=== PATIENT | female | born 1945 | race Two or more races ===

== ENCOUNTER → 2020-12-04 10:05 | Outpatient (BNVA) | payer MEDICARE, MEDICAID, SELFPAY | PROVIDERS: PCP Internal Medicine; Visit Provider Nurse Practitioner Gerontology | DX: E03.9 Hypothyroidism, unspecified (principal); E04.2 Nontoxic multinodular goiter | CPT/HCPCS: 99212 ==

== ENCOUNTER 2022-06-20 09:09 | Outpatient (REF) | payer MEDICARE, MEDICAID, SELFPAY ==
[2022-06-20 14:38] LABS: CT PCR NOT DETECTED (Not Detect.); NG PCR NOT DETECTED (Not Detect.)
== END 2022-06-20 09:10 | disposition home or self-care (01) ==
LOC: HO.LAB 09:09
PROVIDERS: Visit Provider Internal Medicine
DX: Z11.3 Encounter for screening for infections with a predominantly sexual mode of transmission (principal); N76.0 Acute vaginitis
CPT/HCPCS: 87491; 87591

== ENCOUNTER 2023-01-14 10:52 | Outpatient (REF) | payer MEDICARE, MEDICAID, SELFPAY ==
[2023-01-14 15:24] LABS: Influenza A PCR NEGATIVE (Negative); Influenza B PCR NEGATIVE (Negative); Resp Syncy Virus RNA Qual PCR NEGATIVE (Negative); SARS COV2 PCR INHOUSE NEGATIVE (Negative)
== END 2023-01-14 10:53 | disposition home or self-care (01) ==
LOC: HO.LAB 10:52
PROVIDERS: Visit Provider Internal Medicine
DX: R09.89 Other specified symptoms and signs involving the circulatory and respiratory systems (principal); Z20.822 Contact with and (suspected) exposure to COVID-19
CPT/HCPCS: 0241U

== ENCOUNTER 2023-07-21 10:24 | Outpatient (AMB) | payer MEDICARE, MEDICAID, SELFPAY ==
[2023-07-21 10:29] VITALS: BP 118/68; PULSE 83; O2SAT 96; BMI 30.8
--- NOTE | 2023-07-21 10:29 | MHC.PC.OV ---
Vital Signs 07/21/23 10:29 Height 5 ft 6 in Weight 191 lb BMI 30.8 BP 118/68 Blood Pressure Location Lt brachial Position Sitting Pulse 83 Pulse Source Pulse Oximeter Pulse Oximetry (%) 96 Oxygen Delivery Method Room Air Intake Visit Reasons: Annual PE Intake Note: Pt is here today for PE. Allergies empagliflozin [From Jardiance] Adverse Reaction (Intermediate, Verified 07/21/23 10:40) candidiasis glipizide Adverse Reaction (Intermediate, Verified 07/21/23 10:40) leg edema Tobacco use date assessed: 07/21/23 Fall risk assessment: No Falls in past year Last assessed Fall Risk: 07/21/23 Dental Screening Dental Screen Date: 07/21/23 Did you have a dental visit in the last 12 months?: Yes Did you have a dental problem in the last 6 months where you did not have access to dental care?: No Was dental information given to patient?: Patient has dentist HPI Annual PE HPI Details PATIENT PRESENTS FOR PHYSICAL PFSH Medical History Nolasco's palsy DILL (dyspnea on exertion) Multinodular goiter Sore throat Hyperlipidemia Osteoporosis Skin cancer, basal cell Cervical radiculopathy Hypothyroidism FREDY (obstructive sleep apnea) Chronic lower back pain HTN (hypertension) DM type 2 (diabetes mellitus, type 2) Surgical History Hx of cataract surgery Family History Father No problems noted. Mother Cataract Social History Household Members: Spouse Housing: House Alcohol intake: never Patient Tobacco Use Status: Never used Tobacco e-Cigarette/Vaping Use: Never Used service: No Current occupational status: retired Cognitive needs: No Hearing needs: No Vision needs: No Questionnaire Thrive Questionnaire Date Thrive assessed: 12/30/22 AUDIT C Alcohol Use Questionnaire (AUDIT-C) 1. How often do you have a drink containing alcohol?: Never 3. How often do you have six or more drinks on one occasion?: Never Total Score: 0 JUAN LUIS-7 AMB Questionnaire JUAN LUIS-7 Date JUAN LUIS - 7 assessed: 12/30/22 Source: Developed by Drs. Henry Whiteside, Dora Roblero, Reggie Peterson and colleagues, with an educational keny from [employer]. Review of Systems Const All systems reviewed & are unremarkable except as noted in HPI and below Reports no additional complaints Eyes Reports no additional complaints ENT Reports no additional complaints Card Reports no additional complaints Resp Reports no additional complaints GI Reports no additional complaints Reports no additional complaints Physical exam (Primary Care) Vital Signs: Last Vital Signs Pulse 83 07/21/23 10:29 BP 118/68 07/21/23 10:29 Pulse Ox 96 07/21/23 10:29 Oxygen Delivery Method Room Air 07/21/23 10:29 BMI result Body Mass Index 30.8 Tobacco/Smoking Status: Tobacco use Status Tobacco use date assessed 07/21/23 07/21/23 10:42 Patient Tobacco Use Status Never used Tobacco 07/21/23 10:42 e-Cigarette/Vaping Use Never Used 07/21/23 10:29 Thrive Assessment: Date of Thrive Assessment Date Thrive assessed 12/30/22 07/21/23 10:29 Const General: no acute distress HENMT Head: Yes normal to inspection Face and sinus: Yes normal facial exam Throat: Yes posterior oropharynx normal Eyes General: appearance normal, both eyes and all related structures Neck Neck: Yes supple Resp Effort & Inspection: normal respiratory effort Auscultation: clear to auscultation bilaterally Cardio Rhythm: regular rhythm Heart sounds: S1 normal heart sound present and S2 normal heart sound present GI Inspection: Yes normal to inspection Palpation (GI): Soft to palpation Percussion: Yes normal to percussion Auscultation: normal bowel sounds Extrem General: Yes no clubbing, cyanosis or edema Results AMB Hemoglobin A1c AMB Hemoglobin A1c 9.2 % Last Edit by ASHLY Perez on 07/21/23 11:40 Results Reviewed Results Reviewed: Laboratory Last Values Hgb A1c (Clinic) 9.2 % (4.0-6.0) H 07/21/23 11:40 Assessment and Plan Assessment & Plan (1) Hyperlipidemia: Code(s): E78.5 - Hyperlipidemia, unspecified Plan: Continue Crestor (2) HTN (hypertension): Code(s): I10 - Essential (primary) hypertension Plan: cont meds (3) DM type 2 (diabetes mellitus, type 2): Comment: Cannot tolerate 2000 mg of metformin, stomach upset Code(s): E11.9 - Type 2 diabetes mellitus without complications Plan: A1c is 9.1, ADA diet increase physical activity discussed with the patient. Adding Trulicity or insulin discussed with the patient but she declined. She would like to follow-up in 2 months with a fasting blood work including A1c (4) Annual physical exam: Code(s): Z00.00 - Encounter for general adult medical examination without abnormal findings Plan: Well-balanced diet regular exercise discussed with the patient. (5) Hypothyroidism: Code(s): E03.9 - Hypothyroidism, unspecified Plan: Continue levothyroxine Orders: Orders Comprehensive [place]. Panel Fast 2 Months E11.9 - Type 2 diabetes mellitus without complications, E78.5 - Hyperlipidemia, unspecified, I10 - Essential (primary) hypertension Complete Blood Count Auto Diff 2 Months E11.9 - Type 2 diabetes mellitus without complications, E78.5 - Hyperlipidemia, unspecified, I10 - Essential (primary) hypertension Hemoglobin A1c 2 Months E11.9 - Type 2 diabetes mellitus without complications, E78.5 - Hyperlipidemia, unspecified, I10 - Essential (primary) hypertension UA w Microscopic 2 Months E11.9 - Type 2 diabetes mellitus without complications AMB Hemoglobin A1c Today Z13.9 - Encounter for screening, unspecified Lipid Panel 2 Months E11.9 - Type 2 diabetes mellitus without complications, E78.5 - Hyperlipidemia, unspecified, I10 - Essential (primary) hypertension Medications: Refilled Levoxyl (levothyroxine) 88 mcg PO DAILY 90 tabs 3RF NS E03.9 - Hypothyroidism, unspecified metformin ER 1,500 mg (3 x 500 mg) PO DAILY 270 tabs 3RF olmesartan 40 mg PO DAILY 90 tabs 3RF Crestor (rosuvastatin) 10 mg PO DAILY 90 tabs 3RF NS amlodipine 2.5 mg PO DAILY 90 tabs 3RF Coding Level of Care Code Est Pt Prev Care >65y(30964) Diagnoses Hyperlipidemia E78.5 HTN (hypertension) I10 DM type 2 (diabetes mellitus, type 2) E11.9 Annual physical exam Z00.00 Hypothyroidism E03.9
== END 2023-07-21 13:20 | disposition home or self-care (01) ==
PROVIDERS: Visit Provider Internal Medicine
DX: Z00.00 Encounter for general adult medical examination without abnormal findings (principal); E78.5 Hyperlipidemia, unspecified; I10 Essential (primary) hypertension; E11.69 Type 2 diabetes mellitus with other specified complication; E03.9 Hypothyroidism, unspecified
CPT/HCPCS: 83036; 99397

== ENCOUNTER 2023-10-14 11:51 | Outpatient (AMB) | payer MEDICARE, MEDICAID, SELFPAY ==
--- NOTE | 2023-10-14 12:07 | A.OFFPC_ITS ---
Vital Signs 10/14/23 12:08 Height 5 ft 6 in Weight 186 lb 8 oz BMI 30.1 BP 120/82 Blood Pressure Location Lt brachial Position Sitting Pulse 91 Pulse Source Pulse Oximeter Pulse Oximetry (%) 97 Oxygen Delivery Method Room Air Intake Visit Reasons: 2 months follow up Intake Note: Pt is here to follow up for her lab results Allergies empagliflozin [From Jardiance] Adverse Reaction (Intermediate, Verified 10/14/23 12:20) candidiasis glipizide Adverse Reaction (Intermediate, Verified 10/14/23 12:20) leg edema Medication List - Last Reconciled 10/14/23 by Ericka Pham MD albuterol sulfate 90 mcg/actuation 2 puffs inhalation Q6H PRN amlodipine 2.5 mg PO DAILY benzonatate 100 mg PO TID blood sugar diagnostic (FreeStyle Lite Strips) check glucose once a day cholecalciferol (vitamin D3) 50 mcg PO DAILY cholecalciferol (vitamin D3) 50 mcg PO DAILY Crestor (rosuvastatin) 10 mg PO DAILY NS dapagliflozin propanediol (Farxiga) 5 mg PO DAILY famotidine (Pepcid) 20 mg PO DAILY fluconazole 150 mg PO Q3D 2 doses fluticasone propionate 50 mcg/actuation 1 spray intranasal DAILY ketoconazole 2% 1 appl topical DAILY lancets (FreeStyle Lancets) check glucose once a day Levoxyl (levothyroxine) 88 mcg PO DAILY NS meclizine 25 mg PO BID PRN metformin ER 1,500 mg (3 x 500 mg) PO DAILY olmesartan 40 mg PO DAILY Tobacco use date assessed: 10/14/23 Fall risk assessment: No Falls in past year Last assessed Fall Risk: 10/14/23 Dental Screening Dental Screen Date: 10/14/23 Did you have a dental visit in the last 12 months?: Yes Did you have a dental problem in the last 6 months where you did not have access to dental care?: No Was dental information given to patient?: Patient has dentist HPI 2 months follow up HPI Details Patient presents for the follow-up of hypertension hyperlipidemia type 2 diabetes and hypothyroidism. Patient has been going to physical therapy for chronic lower back pain and is feeling slightly better. [facility] Medical History Nolasco's palsy DILL (dyspnea on exertion) Multinodular goiter Sore throat Hyperlipidemia Osteoporosis Skin cancer, basal cell Cervical radiculopathy Hypothyroidism FREDY (obstructive sleep apnea) Chronic lower back pain HTN (hypertension) DM type 2 (diabetes mellitus, type 2) Surgical History Hx of cataract surgery Family History Father No problems noted. Mother Cataract Social History Household Members: Spouse Housing: House Alcohol intake: never Patient Tobacco Use Status: Never used Tobacco e-Cigarette/Vaping Use: Never Used service: No Current occupational status: retired Cognitive needs: No Hearing needs: No Vision needs: No Questionnaire Thrive Questionnaire Date Thrive assessed: 12/30/22 AUDIT C Alcohol Use Questionnaire (AUDIT-C) 1. How often do you have a drink containing alcohol?: Never 3. How often do you have six or more drinks on one occasion?: Never Total Score: 0 JUAN LUIS-7 AMB Questionnaire JUAN LUIS-7 Date JUAN LUIS - 7 assessed: 12/30/22 Source: Developed by Drs. Henry Whiteside, Dora Roblero, Reggie Peterson and colleagues, with an educational keny from [employer]. Review of Systems Const All systems reviewed & are unremarkable except as noted in HPI and below Reports no additional complaints Eyes Reports no additional complaints ENT Reports no additional complaints Card Reports no additional complaints Resp Reports no additional complaints GI Reports no additional complaints Reports no additional complaints Physical exam (Primary Care) Vital Signs: Last Vital Signs Pulse 91 10/14/23 12:08 BP 160/98 H 10/14/23 12:08 Pulse Ox 97 10/14/23 12:08 Oxygen Delivery Method Room Air 10/14/23 12:08 BMI result Body Mass Index 30.1 Tobacco/Smoking Status: Tobacco use Status Tobacco use date assessed 10/14/23 10/14/23 12:21 Patient Tobacco Use Status Never used Tobacco 10/14/23 12:12 e-Cigarette/Vaping Use Never Used 10/14/23 12:12 Thrive Assessment: Date of Thrive Assessment Date Thrive assessed 12/30/22 10/14/23 12:12 Const General: no acute distress HENMT Head: Yes normal to inspection Ears: hearing grossly normal bilaterally Face and sinus: Yes normal facial exam Eyes General: appearance normal, both eyes and all related structures Neck Neck: Yes supple Resp Effort & Inspection: normal respiratory effort Auscultation: clear to auscultation bilaterally Cardio Rhythm: regular rhythm Heart sounds: S1 normal heart sound present and S2 normal heart sound present GI Inspection: Yes normal to inspection Palpation (GI): Soft to palpation Percussion: Yes normal to percussion Auscultation: normal bowel sounds Assessment and Plan Assessment & Plan (1) Sciatica: Code(s): M54.30 - Sciatica, unspecified side Plan: Continue physical therapy (2) DM type 2 (diabetes mellitus, type 2): Comment: Cannot tolerate 2000 mg of metformin, stomach upset Code(s): E11.9 - Type 2 diabetes mellitus without complications Plan: A1c is 9.3, ADA diet increase physical activity weight loss discussed with the patient. She is willing to try a low-dose of Farxiga in addition to metformin. Follow-up in 3 months with a fasting labs before (3) HTN (hypertension): Code(s): I10 - Essential (primary) hypertension Plan: Continue olmesartan and amlodipine (4) Hyperlipidemia: Code(s): E78.5 - Hyperlipidemia, unspecified Plan: Continue statin Orders: Orders Hemoglobin A1c 3 Months E11.9 - Type 2 diabetes mellitus without complications, E78.5 - Hyperlipidemia, unspecified, I10 - Essential (primary) hypertension XR lumbar spine 2-3V Today M54.30 - Sciatica, unspecified side Comprehensive [place]. Panel Fast 3 Months E11.9 - Type 2 diabetes mellitus without complications, E78.5 - Hyperlipidemia, unspecified, I10 - Essential (primary) hypertension Medications: New dapagliflozin propanediol (Farxiga) 5 mg PO DAILY 90 tabs 0RF Coding Level of Care Code Est Pt Level 4 (48207) Diagnoses Sciatica M54.30 DM type 2 (diabetes mellitus, type 2) E11.9 HTN (hypertension) I10 Hyperlipidemia E78.5
[2023-10-14 12:08] VITALS: BP 120/82; PULSE 91; O2SAT 97; BMI 30.1
== END 2023-10-14 12:37 | disposition home or self-care (01) ==
PROVIDERS: PCP Internal Medicine; Visit Provider Internal Medicine
DX: E11.69 Type 2 diabetes mellitus with other specified complication (principal); M54.30 Sciatica, unspecified side; I10 Essential (primary) hypertension; E78.5 Hyperlipidemia, unspecified
CPT/HCPCS: 99214

== ENCOUNTER 2023-12-10 11:13 | Outpatient (AMB) | payer MEDICARE, MEDICAID, SELFPAY ==
[2023-12-10 11:15] VITALS: BP 136/72; PULSE 92; O2SAT 97; BMI 30.5
--- NOTE | 2023-12-10 11:15 | A.OFFPC_ITS ---
Vital Signs 12/10/23 11:15 Height 5 ft 6 in Weight 189 lb BMI 30.5 BP 136/72 Blood Pressure Location Lt brachial Position Sitting Pulse 92 Pulse Source Pulse Oximeter Pulse Oximetry (%) 97 Oxygen Delivery Method Room Air Intake Visit Reasons: Follow up on back pain not better Intake Note: Pt is here today for a follow up visit on lower back pain that goes down her leg. Pt states that she had PT and in the begining it helped but now the pain is worst. Pt states that yesterday she had pain in her lower L leg sharp pain. Allergies empagliflozin [From Jardiance] Adverse Reaction (Intermediate, Verified 12/10/23 11:16) candidiasis glipizide Adverse Reaction (Intermediate, Verified 12/10/23 11:16) leg edema Medication List - Last Reconciled 12/10/23 by Ericka Pham MD albuterol sulfate 90 mcg/actuation 2 puffs inhalation Q6H PRN amlodipine 2.5 mg PO DAILY blood sugar diagnostic (FreeStyle Lite Strips) check glucose once a day cholecalciferol (vitamin D3) 50 mcg PO DAILY Crestor (rosuvastatin) 10 mg PO DAILY NS dapagliflozin propanediol (Farxiga) 5 mg PO DAILY famotidine (Pepcid) 20 mg PO DAILY fluconazole 150 mg PO Q3D 2 doses fluticasone propionate 50 mcg/actuation 1 spray intranasal DAILY ketoconazole 2% 1 appl topical DAILY lancets (FreeStyle Lancets) check glucose once a day Levoxyl (levothyroxine) 88 mcg PO DAILY NS meclizine 25 mg PO BID PRN meloxicam 15 mg PO DAILY metformin ER 1,500 mg (3 x 500 mg) PO DAILY olmesartan 40 mg PO DAILY Tobacco use date assessed: 12/10/23 Fall risk assessment: No Falls in past year Last assessed Fall Risk: 12/10/23 Dental Screening Dental Screen Date: 12/10/23 HPI Follow up on back pain not better HPI Details Patient presents for the follow-up of chronic lower back pain without significant improvement since starting physical therapy. Patient reports pain radiating to both lower extremities worse when standing or walking for longer distance. She denies change in bowel/bladder function, weakness or numbness in extremities. Patient has been taking Crestor for hyperlipidemia and believes it is causing her muscle achiness. Hypertension and type 2 diabetes are stable on medications PFSH Medical History Nolasco's palsy DILL (dyspnea on exertion) Multinodular goiter Sore throat Hyperlipidemia Osteoporosis Skin cancer, basal cell Cervical radiculopathy Hypothyroidism FREDY (obstructive sleep apnea) Chronic lower back pain HTN (hypertension) DM type 2 (diabetes mellitus, type 2) Surgical History Hx of cataract surgery Family History Father No problems noted. Mother Cataract Social History Household Members: Spouse Housing: House Alcohol intake: never Patient Tobacco Use Status: Never used Tobacco e-Cigarette/Vaping Use: Never Used service: No Current occupational status: retired Cognitive needs: No Hearing needs: No Vision needs: No Questionnaire PHQ-9 Over the last 2 weeks, how often have you been bothered by any of the following problems? 1. Little interest or pleasure in doing things: not at all 2. Feeling down, depressed, or hopeless: not at all 3. Trouble falling or staying asleep, or sleeping too much: not at all 4. Feeling tired or having little energy: not at all 5. Poor appetite or overeating: not at all 6. Feeling bad about yourself - or that you are a failure or have let yourself or your family down: not at all 7. Trouble concentrating on things, such as reading the newspaper or watching television: not at all 8. Moving or speaking so slowly that other people could have noticed. Or the opposite - being so fidgety or restless that you have been moving around a lot m ore than usual: not at all 9. Thoughts that you would be better off or of hurting yourself in some way: not at all Total score: 0 Depression Screening Interpretation: Negative Depression Screening Done: Yes Source: Developed by Drs. Henry Whiteside, Dora Roblero, Reggie Peterson and colleagues, with an educational keny from [employer]. Thrive Questionnaire Date Thrive assessed: 12/10/23 I am a: Patient What is your living situation today?: I have a steady place to live Within the past 12 months, did the food you bought not last and you didn't have the money to get more?: Never true Within the past 12 months, did you worry whether your food would run out before you got money to buy more?: Never true Do you have trouble paying for medicines?: No Do you have trouble getting transportation to medical appointments?: No Do you have trouble paying your heating and electricity bill?: No Do you have trouble taking care of your child, family member or friend?: No Do you have trouble with day-to-day activities such as bathing, preparing meals, shopping, managing finances, etc.?: No Are you currently unemployed and looking for a job?: No Are you interested in more education?: No Please select the resources that you would like help with: None Currently or been in a relationship where the following occur: no concerns reported THRIVE Score: 0 JUAN LUIS-7 AMB Questionnaire JUAN LUIS-7 Date JUAN LUIS - 7 assessed: 12/10/23 Feeling nervous, anxious, or on edge: 0 = Not at all Not being able to stop or control worryin = Not at all Worrying too much about different things: 0 = Not at all Trouble relaxin = Not at all Being so restless that it is hard to sit still: 0 = Not at all Becoming easily annoyed or irritable: 0 = Not at all Feeling afraid as if something awful might happen: 0 = Not at all Total JUAN LUIS-7 score (0-4 normal; 5-9 mild; 10-14 moderate; 15-21 severe): 0 Source: Developed by Drs. Henry Whiteside, Dora Roblero, Reggie Peterson and colleagues, with an educational keny from [employer]. Review of Systems Const All systems reviewed & are unremarkable except as noted in HPI and below Reports no additional complaints Eyes Reports no additional complaints Card Reports no additional complaints Resp Reports no additional complaints GI Reports no additional complaints Reports no additional complaints Physical exam (Primary Care) Vital Signs: Last Vital Signs Pulse 92 12/10/23 11:15 BP 136/72 12/10/23 11:15 Pulse Ox 97 12/10/23 11:15 Oxygen Delivery Method Room Air 12/10/23 11:15 BMI result Body Mass Index 30.5 Tobacco/Smoking Status: Tobacco use Status Tobacco use date assessed 12/10/23 12/10/23 11:21 Patient Tobacco Use Status Never used Tobacco 12/10/23 11:21 e-Cigarette/Vaping Use Never Used 12/10/23 11:21 PHQ-9: PHQ-9 Score PHQ-9: Total score 0 12/10/23 11:21 Depression Screening Interpretation: Negative Thrive Assessment: Date of Thrive Assessment Date Thrive assessed 12/10/23 12/10/23 11:21 Currently or been in a relationship where the following occur: no concerns reported [facility] Head: Yes normal to inspection Ears: hearing grossly normal bilaterally Mouth: Normal oral and palatal mucosa present Eyes General: appearance normal, both eyes and all related structures Neck Neck: Yes supple Resp Effort & Inspection: normal respiratory effort Auscultation: clear to auscultation bilaterally Cardio Rhythm: regular rhythm Heart sounds: S1 normal heart sound present and S2 normal heart sound present Back/Spine/Pelvis Other: Decreased range of motionin the lumbar spine, paraspinal tenderness kevin, straight leg rising 45 degrees bilaterally, deep tendon reflexes 1+ bilaterally Assessment and Plan Assessment & Plan (1) Spinal stenosis of lumbar region with neurogenic claudication: Code(s): M48.062 - Spinal stenosis, lumbar region with neurogenic claudication Plan: For worsening spinal stenosis obtain MRI of lumbar spine, (2) Sciatica: Code(s): M54.30 - Sciatica, unspecified side (3) HTN (hypertension): Code(s): I10 - Essential (primary) hypertension Plan: Continue current medications (4) Hyperlipidemia: Code(s): E78.5 - Hyperlipidemia, unspecified Plan: Hold Crestor for 1 month for the symptoms of myalgia (5) DM type 2 (diabetes mellitus, type 2): Comment: Cannot tolerate 2000 mg of metformin, stomach upset Code(s): E11.9 - Type 2 diabetes mellitus without complications Plan: ADA diet increase physical activity medication compliance discussed with the patient, follow-up in 1 month with a fasting labs before Orders: Orders MR lumbar spine w con Today M48.061 - Spinal stenosis, lumbar region without neurogenic claudication Medications: New meloxicam 15 mg PO DAILY 20 tabs 0RF Refilled dapagliflozin propanediol (Farxiga) 5 mg PO DAILY 90 tabs 1RF Coding Level of Care Code Est Pt Level 4 (59786) Diagnoses Spinal stenosis of lumbar region with neurogenic claudication M48.062 Sciatica M54.30 HTN (hypertension) I10 Hyperlipidemia E78.5 DM type 2 (diabetes mellitus, type 2) E11.9
== END 2023-12-10 12:36 | disposition home or self-care (01) ==
LOC: HO.HMGC 11:13
PROVIDERS: PCP Internal Medicine; Visit Provider Internal Medicine
DX: M48.062 Spinal stenosis, lumbar region with neurogenic claudication (principal); M54.30 Sciatica, unspecified side; I10 Essential (primary) hypertension; E11.69 Type 2 diabetes mellitus with other specified complication; E78.5 Hyperlipidemia, unspecified
CPT/HCPCS: 99214

== ENCOUNTER 2024-01-13 11:49 | Outpatient (AMB) | payer MEDICARE, MEDICAID, SELFPAY ==
[2024-01-13 12:14] VITALS: BP 120/80; PULSE 61; O2SAT 97; BMI 31.1
--- NOTE | 2024-01-13 12:14 | A.OFFPC_ITS ---
Vital Signs 01/13/24 12:14 Height 5 ft 6 in Weight 193 lb BMI 31.1 BP 120/80 Blood Pressure Location Lt brachial Position Sitting Pulse 61 Pulse Source Pulse Oximeter Pulse Oximetry (%) 97 Oxygen Delivery Method Room Air Intake Visit Reasons: 3 months follow up Intake Note: Pt is here today for her 6 mo. f/u Allergies dapagliflozin Adverse Reaction (Intermediate, Verified 01/13/24 12:55) candidiasis empagliflozin [From Jardiance] Adverse Reaction (Intermediate, Verified 01/13/24 12:15) candidiasis glipizide Adverse Reaction (Intermediate, Verified 01/13/24 12:15) leg edema Medication List - Last Reconciled 01/13/24 by Ericka Pham MD albuterol sulfate 90 mcg/actuation 2 puffs inhalation Q6H PRN amlodipine 2.5 mg PO DAILY blood sugar diagnostic (FreeStyle Lite Strips) check glucose once a day cholecalciferol (vitamin D3) 50 mcg PO DAILY Crestor (rosuvastatin) 10 mg PO DAILY NS dapagliflozin propanediol (Farxiga) 5 mg PO DAILY famotidine (Pepcid) 20 mg PO DAILY fluticasone propionate 50 mcg/actuation 1 spray intranasal DAILY ketoconazole 2% 1 appl topical DAILY lancets (FreeStyle Lancets) check glucose once a day Levoxyl (levothyroxine) 88 mcg PO DAILY NS meclizine 25 mg PO BID PRN meloxicam 15 mg PO DAILY metformin ER 1,500 mg (3 x 500 mg) PO DAILY olmesartan 40 mg PO DAILY Tobacco use date assessed: 01/13/24 Fall risk assessment: No Falls in past year Last assessed Fall Risk: 01/13/24 Dental Screening Dental Screen Date: 01/13/24 Did you have a dental visit in the last 12 months?: No Was dental information given to patient?: Patient declined HPI 3 months follow up HPI Details Patient presents for follow-up of type 2 diabetes hypertension hyperlipidemia. Lower back pain improved and patient has been able to walk for least 30 minutes every day. She complains of swelling behind her left knee and pain and stiffness when starting to walk. She did not notice any significant difference in general body aches since she stopped taking Crestor. [facility] Medical History Nolasco's palsy DILL (dyspnea on exertion) Multinodular goiter Sore throat Hyperlipidemia Osteoporosis Skin cancer, basal cell Cervical radiculopathy Hypothyroidism FREDY (obstructive sleep apnea) Chronic lower back pain HTN (hypertension) DM type 2 (diabetes mellitus, type 2) Surgical History Hx of cataract surgery Family History Father No problems noted. Mother Cataract Social History Household Members: Spouse Housing: House Alcohol intake: never Patient Tobacco Use Status: Never used Tobacco e-Cigarette/Vaping Use: Never Used service: No Current occupational status: retired Cognitive needs: No Hearing needs: No Vision needs: No Questionnaire Thrive Questionnaire Date Thrive assessed: 12/10/23 JUAN LUIS-7 AMB Questionnaire JUAN LUIS-7 Date JUAN LUIS - 7 assessed: 12/10/23 Source: Developed by Drs. Henry Whiteside, Dora Roblero, Reggie Peterson and colleagues, with an educational keny from [facility]. Review of Systems Const All systems reviewed & are unremarkable except as noted in HPI and below ENT Reports no additional complaints Card Reports no additional complaints Resp Reports no additional complaints GI Reports no additional complaints Reports no additional complaints Physical exam (Primary Care) Vital Signs: Last Vital Signs Pulse 61 01/13/24 12:14 BP 146/80 H 01/13/24 12:14 Pulse Ox 97 01/13/24 12:14 Oxygen Delivery Method Room Air 01/13/24 12:14 BMI result Body Mass Index 31.1 Tobacco/Smoking Status: Tobacco use Status Tobacco use date assessed 01/13/24 01/13/24 12:20 Patient Tobacco Use Status Never used Tobacco 01/13/24 12:20 e-Cigarette/Vaping Use Never Used 01/13/24 12:20 Thrive Assessment: Date of Thrive Assessment Date Thrive assessed 12/10/23 01/13/24 12:20 Const General: no acute distress HENMT Head: Yes normal to inspection Eyes General: appearance normal, both eyes and all related structures Resp Effort & Inspection: normal respiratory effort Auscultation: clear to auscultation bilaterally Cardio Rhythm: regular rhythm Heart sounds: S1 normal heart sound present and S2 normal heart sound present GI Inspection: Yes normal to inspection Palpation (GI): Soft to palpation Percussion: Yes normal to percussion Auscultation: normal bowel sounds Extrem Other: soft tissue swelling behind the left knee, there is slightly decreased range of motion in both knees and crepitus but no knee swelling or tenderness Assessment and Plan Assessment & Plan (1) Left leg swelling: Code(s): - Other specified soft tissue disorders Plan: Obtain left lower extremity ultrasound to rule out DVT or Zarate's cyst (2) DM type 2 (diabetes mellitus, type 2): Comment: Cannot tolerate 2000 mg of metformin, stomach upset Code(s): E11.9 - Type 2 diabetes mellitus without complications Plan: A1c is 10.0, patient did not try dapagliflozin because side effect of candidiasis. She has been taking metformin regularly. Adding insulin discussed with the patient but she declined. She will try ADA diet increase physical activity follow-up in 3 months with a fasting labs before (3) HTN (hypertension): Comment: Patient stopped taking olmesartan 01/12 Code(s): I10 - Essential (primary) hypertension Plan: Continue amlodipine, (4) Hyperlipidemia: Code(s): E78.5 - Hyperlipidemia, unspecified Plan: Restart half a dose of Crestor check lipid profile in 3 months (5) Hypothyroidism: Code(s): E03.9 - Hypothyroidism, unspecified Plan: Continue Levothyroxine (6) Spinal stenosis of lumbar region with neurogenic claudication: Code(s): M48.062 - Spinal stenosis, lumbar region with neurogenic claudication Plan: Patient would like to cancel an MRI appointment because her back pain improved with physical therapy Orders: Orders Lipid Panel 3 Months - Other specified soft tissue disorders US venous duplex LE LT Today - Other specified soft tissue disorders Comprehensive [place]. Panel Fast 3 Months - Other specified soft tissue disorders Hemoglobin A1c 3 Months - Other specified soft tissue disorders Complete Blood Count Auto Diff 3 Months - Other specified soft tissue disorders Medications: Refilled Crestor (rosuvastatin) 10 mg PO DAILY 90 tabs 3RF NS Discontinued olmesartan Discontinued Reason: Doctor's Order 40 mg PO DAILY 90 tabs 3RF Crestor (rosuvastatin) Discontinued Reason: Doctor's Order 10 mg PO DAILY 90 tabs 3RF NS meloxicam Discontinued Reason: Doctor's Order 15 mg PO DAILY 20 tabs 0RF Coding Level of Care Code Est Pt Level 4 (10646) Diagnoses Left leg swelling M79.89 DM type 2 (diabetes mellitus, type 2) E11.9 HTN (hypertension) I10 Hyperlipidemia E78.5 Hypothyroidism E03.9 Spinal stenosis of lumbar region with neurogenic claudication M48.062
== END 2024-01-13 13:03 | disposition home or self-care (01) ==
PROVIDERS: PCP Internal Medicine; Visit Provider Internal Medicine
DX: M79.89 Other specified soft tissue disorders (principal); E11.9 Type 2 diabetes mellitus without complications; I10 Essential (primary) hypertension; E78.5 Hyperlipidemia, unspecified; E03.9 Hypothyroidism, unspecified; M48.062 Spinal stenosis, lumbar region with neurogenic claudication
CPT/HCPCS: 99214

== ENCOUNTER 2024-01-13 13:10 | Outpatient (REF) | payer MEDICARE, MEDICAID, SELFPAY ==
--- NOTE | ~2024-01-13 | US_ITS ---
EXAMINATION: US VENOUS ULTRASOUND WITH DOPPLER LOWER EXTREMITY, LEFT CLINICAL INFORMATION: Left lower extremity swelling. Clinical concern for left lower extremity deep venous thrombosis COMPARISON: None available. TECHNIQUE: Ultrasound of the deep veins is performed from the hip to the calf with compression sonography and color and pulse Doppler assessment. Spectral analysis with color-flow imaging is performed. FINDINGS: There is normal venous compression and respiratory variation and augmented flow. The visualized common femoral vein, superficial femoral vein, profunda femoral vein, popliteal vein, and the trifurcation region shows no evidence of deep venous thrombosis. There is no significant popliteal fossa cyst. If the patient's symptoms persist, followup ultrasound in 5 days 7 days might be of value to exclude proximal propagation from a non-visualized calf vein. US/US venous duplex LE IMPRESSION: No DVT demonstrated in the left lower extremity.
== END 2024-01-13 13:11 | disposition home or self-care (01) ==
LOC: HO.HMGCX 13:10
PROVIDERS: Visit Provider Internal Medicine
DX: R60.0 Localized edema (principal)
CPT/HCPCS: 93971

== ENCOUNTER 2024-04-12 11:52 | Outpatient (AMB) | payer MEDICARE, MEDICAID, SELFPAY ==
[2024-04-12 11:53] VITALS: BP 126/82; PULSE 95; O2SAT 98; BMI 29.9
--- NOTE | 2024-04-12 11:53 | MHC.PC.OV ---
Vital Signs 04/12/24 11:53 Height 5 ft 6 in Weight 185 lb BMI 29.9 BP 126/82 Blood Pressure Location Lt brachial Position Sitting Pulse 95 Pulse Source Pulse Oximeter Pulse Oximetry (%) 98 Oxygen Delivery Method Room Air Intake Visit Reasons: 3 months follow up Intake Note: Pt is here today for 3 months follow up visit. Allergies dapagliflozin Adverse Reaction (Intermediate, Verified 04/12/24 12:02) candidiasis empagliflozin [From Jardiance] Adverse Reaction (Intermediate, Verified 04/12/24 12:02) candidiasis glipizide Adverse Reaction (Intermediate, Verified 04/12/24 12:02) leg edema Medication List - Last Reconciled 04/12/24 by Ericka Pham MD albuterol sulfate 90 mcg/actuation 2 puffs inhalation Q6H PRN amlodipine 2.5 mg PO DAILY blood sugar diagnostic (FreeStyle Lite Strips) check glucose once a day cholecalciferol (vitamin D3) 50 mcg PO DAILY Crestor (rosuvastatin) 10 mg PO DAILY NS famotidine (Pepcid) 20 mg PO DAILY fluticasone propionate 50 mcg/actuation 1 spray intranasal DAILY ketoconazole 2% 1 appl topical DAILY lancets (FreeStyle Lancets) check glucose once a day Levoxyl (levothyroxine) 88 mcg PO DAILY NS meclizine 25 mg PO BID PRN metformin ER 1,500 mg (3 x 500 mg) PO DAILY Tobacco use date assessed: 04/12/24 Fall risk assessment: No Falls in past year Last assessed Fall Risk: 04/12/24 Dental Screening Dental Screen Date: 04/12/24 Did you have a dental visit in the last 12 months?: Yes Did you have a dental problem in the last 6 months where you did not have access to dental care?: No Was dental information given to patient?: Patient has dentist HPI 3 months follow up HPI Details Patient presents for the follow-up of hypertension type 2 diabetes hyperlipidemia hypothyroidism. She complains of right shoulder pain and decreased range of motion since she fell a month ago. Patient denies any weakness in the right upper extremity. [facility] Medical History Nolasco's palsy DILL (dyspnea on exertion) Multinodular goiter Sore throat Hyperlipidemia Osteoporosis Skin cancer, basal cell Cervical radiculopathy Hypothyroidism FREDY (obstructive sleep apnea) Chronic lower back pain HTN (hypertension) DM type 2 (diabetes mellitus, type 2) Surgical History Hx of cataract surgery Family History Father No problems noted. Mother Cataract Social History Household Members: Spouse Housing: House Alcohol intake: never Patient Tobacco Use Status: Never used Tobacco e-Cigarette/Vaping Use: Never Used service: No Current occupational status: retired Cognitive needs: No Hearing needs: No Vision needs: No Questionnaire Thrive Questionnaire Date Thrive assessed: 12/10/23 AUDIT C Alcohol Use Questionnaire (AUDIT-C) 1. How often do you have a drink containing alcohol?: Never 3. How often do you have six or more drinks on one occasion?: Never Total Score: 0 JUAN LUIS-7 AMB Questionnaire JUAN LUIS-7 Date JUAN LUIS - 7 assessed: 12/10/23 Source: Developed by Drs. Henry Whiteside, Dora Roblero, Reggie Peterson and colleagues, with an educational keny from [employer]. Review of Systems Const All systems reviewed & are unremarkable except as noted in HPI and below ENT Reports no additional complaints Card Reports no additional complaints Resp Reports no additional complaints GI Reports no additional complaints Reports no additional complaints Physical exam (Primary Care) Vital Signs: Last Vital Signs Pulse 95 04/12/24 11:53 BP 126/82 04/12/24 11:53 Pulse Ox 98 04/12/24 11:53 Oxygen Delivery Method Room Air 04/12/24 11:53 BMI result Body Mass Index 29.9 Tobacco/Smoking Status: Tobacco use Status Tobacco use date assessed 04/12/24 04/12/24 11:54 Patient Tobacco Use Status Never used Tobacco 04/12/24 11:54 e-Cigarette/Vaping Use Never Used 04/12/24 11:54 Thrive Assessment: Date of Thrive Assessment Date Thrive assessed 12/10/23 04/12/24 11:54 Const General: no acute distress HENMT Head: Yes normal to inspection Eyes General: appearance normal, both eyes and all related structures Neck Neck: Yes supple Resp Effort & Inspection: normal respiratory effort Auscultation: clear to auscultation bilaterally Cardio Rhythm: regular rhythm Heart sounds: S1 normal heart sound present and S2 normal heart sound present GI Inspection: Yes normal to inspection Palpation (GI): Soft to palpation Percussion: Yes normal to percussion Extrem Other: Decreased range of motion of the right shoulder Assessment and Plan Assessment & Plan (1) DM type 2 (diabetes mellitus, type 2): Comment: Cannot tolerate 2000 mg of metformin, stomach upset Code(s): E11.9 - Type 2 diabetes mellitus without complications Plan: A1c is 8.9, ADA diet increase physical activity discussed with the patient she will continue metformin. Patient refused to take any additional medications. She will follow-up in 3 months with a fasting labs before (2) HTN (hypertension): Code(s): I10 - Essential (primary) hypertension Plan: Continue amlodipine and olmesartan (3) Hyperlipidemia: Code(s): E78.5 - Hyperlipidemia, unspecified Plan: Continue crestor 5 mg every other day (4) Shoulder pain, right: Code(s): M25.511 - Pain in right shoulder Plan: Patient will schedule PT at [facility] Orders: Orders PT Evaluation and Treatment Today M25.511 - Pain in right shoulder Hemoglobin A1c 3 Months E11.9 - Type 2 diabetes mellitus without complications, E78.5 - Hyperlipidemia, unspecified, I10 - Essential (primary) hypertension Microalbumin, Random (w Creat) 3 Months E11.9 - Type 2 diabetes mellitus without complications, E78.5 - Hyperlipidemia, unspecified, I10 - Essential (primary) hypertension Complete Blood Count Auto Diff 3 Months E11.9 - Type 2 diabetes mellitus without complications, E78.5 - Hyperlipidemia, unspecified, I10 - Essential (primary) hypertension UA w Microscopic Today N39.0 - Urinary tract infection, site not specified Comprehensive [place]. Panel Fast 3 Months E11.9 - Type 2 diabetes mellitus without complications, E78.5 - Hyperlipidemia, unspecified, I10 - Essential (primary) hypertension Lipid Panel 3 Months E11.9 - Type 2 diabetes mellitus without complications, E78.5 - Hyperlipidemia, unspecified, I10 - Essential (primary) hypertension Medications: New rosuvastatin 5 mg PO DAILY 90 tabs 0RF olmesartan 40 mg PO DAILY 90 tabs 3RF Refilled blood sugar diagnostic (FreeStyle Lite Strips) check glucose once a day 100 ea 2RF E11.9 - Type 2 diabetes mellitus without complications Coding Level of Care Code Est Pt Level 4 (59655) Diagnoses DM type 2 (diabetes mellitus, type 2) E11.9 HTN (hypertension) I10 Hyperlipidemia E78.5 Shoulder pain, right M25.511
--- OUTSIDE RECORDS SUMMARY | 2024-04-12 11:54 | XMS_ITS | Patient Health Record ---
[facility] [place] Address [address] [place] [address] Care Team Providers Care Pathology Specialist Name Role Phone Ericka Pham MD Primary Care Provider Heidia Benita Art Unavailable [phone] ALLERGIES Allergen (clinical drug ingredient) Drug/Non Drug Allergy documented on EMR Reaction Allergy Type Onset Date Status Novocain Unknown Drug Allergy Active REASON FOR REFERRAL No Information MEDICATIONS Medication SIG (Take, Route, Frequency, Duration) Notes Start Date End Date Status metFORMIN HCl Active Levoxyl Active Crestor Active amLODIPine Besy-Benazepril HCl 2.5-10 MG as directed Orally Active Lisinopril Not-Takin g IMMUNIZATIONS Vaccine Route Administration Date Status Comme nts Influenza Unknown 10/24/2020 Refused SOCIAL HISTORY Sex Assigned At : Social History Observation Description Sex Assigned At Unknown Alcohol Screen Question Answer Notes Did you have a drink containing alcohol in the p ast year? No Points 0 Interpretation Negative Tobacco use other than smoking: Question Answer Notes Are you an other tobacco user? No PROBLEMS Problem Type ICD Code Onset Dates Problem Status W/U Status Risk SNOMED Code Notes Problem Type 2 diabetes mellitus without complications (E11.9) Active confirmed Type II diabetes mellitus without complication ([id number]) PLAN OF TREATMENT Pending Test Test Name Order Date [id number] NAIL, 6 OR MORE 07/17/2020 [id number] NAIL, 1-5 08/30/2021 [id number] NAIL, 1-5 12/01/2014 [id number] NAIL, 1-02/26/2016 [id number] NAIL, -10/24/2020 [id number] NAIL, -01/25/2021 [id number] NAIL, 1-5 04/26/2021 [id number] Destruction, 1-14 10/24/2020 [id number] Plate 01/25/2021 [id number] Plate 08/30/2021 [id number] Plate 04/26/2021 [id number] Plate 12/20/2021 20635- Debride <25 sq cm 02/20/2015 Insurance Providers Payer Name Payer Address Payer Phone Subscriber Number Group Number Insured Name Patient Relationship to Insured Coverage Start Date Coverage End Date [employer] [address] [place] [address] [id number] Jo Ann Lozada Self - patient is the insured MEDICAL (GENERAL) HISTORY Medical History History ICD Code Arthritis Diabetic High blood pressure Thyroid disorder Glaucoma Surgical History Surgery Date(Month/Year) thyroid 30 yrs ago gall bladder 18 yrs ago glaucoma L eye 201 6 R eye right cataract sx 04/2020
--- OUTSIDE RECORDS SUMMARY | 2024-04-12 11:54 | XMS_ITS | Continuity of Care Document ---
Author Organization [facility] Address [address] [place] [address]- Care Team Providers Care Harness Preparer Name Role Phone Rachell Andre Primary Care Physician Tanya ilanjum [place] [facility] [place]23 - 03/12/[address] [address]- Attending Physician: Michelle Avila Admitting Physician: AdmMichelle tomlinson Referring Physician: AdmtrMichelle Allergies, Adverse Reactions, Alerts No Known Allergies Medications amLODIPine 2.5 mg oral tablet 2.5 mg, 1, tablet, By Mouth, Daily, # 30 tablet, Refills 0, Maintenance, 04/11/21 7:39:00 EDT, Partial fill upon patient request if the prescription is for a schedule II opioid drug. Start Date: 04/11/21 Status: Ordered Crestor 10 mg oral tablet 1 tablet = 10 mg, By Mouth, Daily, 0 Refills, Maintenance, 04/11/21 7:39:00 EDT, Partial fill upon patient request if the prescription is for a schedule II opioid drug. Start Date: 04/11/21 Status: Ordered famotidine 20 mg oral tablet See Instructions, PLEASE USE 1 table 2 times a day for 14 days, then take 1 tablet daily-- to be continued avoid eating and drinking for 10 minutes after each dose, Refills 0, Maintenance, 04/11/21 7:39:00 EDT, Instructions Replace Required Details,... Start Date: 04/11/21 Status: Ordered Levoxyl 0.088 mg oral tablet 1 tablet = 88 mcg, By Mouth, Daily, # 90 tablet, 3 Refills, Maintenance, 09/27/21 11:45:00 EST, Tablet, [facility]/pharmacy #[id number], Partial fill upon patient request if the prescription is for a schedule II opioid drug. Start Date: 09/27/21 Status: Ordered metFORMIN 1000 mg oral tablet 1 tablet = 1,000 mg, By Mouth, Daily, 0 Refills, Maintenance, 04/11/21 7:38:00 EDT, Partial fill upon patient request if the prescription is for a schedule II opioid drug. Start Date: 04/11/21 Status: Ordered olmesartan 40 mg oral tablet 1 tablet = 40 mg, By Mouth, Daily, # 30 tablet, 0 Refills, Maintenance, 04/11/21 7:39:00 EDT, Tablet, Partial fill upon patient request if the prescription is for a schedule II opioid drug. Start Date: 04/11/21 Status: Ordered oxyCODONE 5 mg oral tablet See Instructions, PRN, 1 tablet By Mouth Every 4 hours, Refills 0, Tot. Refills 0, Maintenance, as needed for pain, 06/30/22 12:29:00 EDT, Instructions Replace Required Details, Partial fill upon patient request if the prescription is for a schedule I... Start Date: 06/30/22 Status: Ordered Refresh Dry Eye Therapy 1 drops, Eyes, Both, 4 times a day, PRN Dry Eyes, 0 Refills, Maintenance, 01/04/22 14:02:00 EDT, Partial fill upon patient request if the prescription is for a schedule II opioid drug. Start Date: 01/04/22 Status: Ordered Patient Care team information Care Team Personnel Name: Rachell Andre Position: Reference Physician Member Role: PCP Care Team Related Persons Name: ROBERTA TROTTER Address: home [address] [place] [address] Name: NASEEM TROTTER Address: home [address] [place] [id number]
--- OUTSIDE RECORDS SUMMARY | 2024-04-12 11:54 | XMS_ITS | Continuity of Care Document ---
Author Organization [facility] Address [address] [place] [address]- Care Team Providers Care Worship Pastor Name Role Phone Rachell Andre Primary Care Physician Tanya ilanjum Encounter [facility] [place] [facility] [place] [id number] Date(s): 11/10/22 - 12/13/[address] [address] Attending Physician: Rogerio Morales MD Admitting Physician: Rogerio Morales MD Referring Physician: Rogerio Morales MD Allergies, Adverse Reactions, Alerts No Known Allergies [...] 3 Refills, Maintenance, 09/27/21 11:45:00 EST, Tablet, [facility]/pharmacy #[id number], Partial fill upon patient request [...] Persons Name: ROBERTA TROTTER Address: home [address] [place] [address] Name: NASEEM TROTTER Address: home [address] [place] [id number]
== END 2024-04-12 12:56 | disposition home or self-care (01) ==
LOC: HO.HMGC 11:53
PROVIDERS: PCP Internal Medicine; Visit Provider Internal Medicine
DX: E11.9 Type 2 diabetes mellitus without complications (principal); I10 Essential (primary) hypertension; E78.5 Hyperlipidemia, unspecified; M25.511 Pain in right shoulder
CPT/HCPCS: 99214

== ENCOUNTER 2024-04-29 10:41 | Outpatient (AMB) | payer MEDICARE, MEDICAID, SELFPAY ==
[2024-04-29 11:05] VITALS: BP 134/78; PULSE 66; O2SAT 98; BMI 29.4
--- NOTE | 2024-04-29 11:05 | A.OFFPC_ITS ---
Vital Signs 04/29/24 11:05 Height 5 ft 6 in Weight 182 lb BMI 29.4 BP 134/78 Blood Pressure Location Lt brachial Position Sitting Pulse 66 Pulse Source Pulse Oximeter Pulse Oximetry (%) 98 Oxygen Delivery Method Room Air Intake Visit Reasons: 1 week f/u Intake Note: Pt is here today for 1 week follow up visit on urine test results. Allergies dapagliflozin Adverse Reaction (Intermediate, Verified 04/29/24 11:06) candidiasis empagliflozin [From Jardiance] Adverse Reaction (Intermediate, Verified 04/29/24 11:06) candidiasis glipizide Adverse Reaction (Intermediate, Verified 04/29/24 11:06) leg edema Tobacco use date assessed: 04/29/24 Dental Screening Dental Screen Date: 04/12/24 HPI 1 week f/u HPI Details Patient presents for the follow-up for increased urinary frequency patient had urine culture consistent with UTI. Hypertension and type 2 diabetes are controlled on current medications. [facility] Medical History Nolasco's palsy DILL (dyspnea on exertion) Multinodular goiter Sore throat Hyperlipidemia Osteoporosis Skin cancer, basal cell Cervical radiculopathy Hypothyroidism FREDY (obstructive sleep apnea) Chronic lower back pain HTN (hypertension) DM type 2 (diabetes mellitus, type 2) Surgical History Hx of cataract surgery Family History Father No problems noted. Mother Cataract Social History Household Members: Spouse Housing: House Alcohol intake: never Patient Tobacco Use Status: Never used Tobacco e-Cigarette/Vaping Use: Never Used service: No Current occupational status: retired Cognitive needs: No Hearing needs: No Vision needs: No Questionnaire Thrive Questionnaire Date Thrive assessed: 12/10/23 I am a: Patient What is your living situation today?: I have a steady place to live Within the past 12 months, did the food you bought not last and you didn't have the money to get more?: I choose not to answer this question Within the past 12 months, did you worry whether your food would run out before you got money to buy more?: I choose not to answer this question Do you have trouble paying for medicines?: I choose not to answer this question Do you have trouble getting transportation to medical appointments?: I choose not to answer this question Do you have trouble paying your heating and electricity bill?: I choose not to answer this question Do you have trouble taking care of your child, family member or friend?: I choose not to answer this question Do you have trouble with day-to-day activities such as bathing, preparing meals, shopping, managing finances, etc.?: I choose not to answer this question Are you currently unemployed and looking for a job?: I choose not to answer this question Are you interested in more education?: I choose not to answer this question Please select the resources that you would like help with: Housing/Penitentiary Currently or been in a relationship where the following occur: No concerns reported THRIVE Score: 0 AUDIT C Alcohol Use Questionnaire (AUDIT-C) 1. How often do you have a drink containing alcohol?: Never Total Score: 0 JUAN LUIS-7 AMB Questionnaire JUAN LUIS-7 Date JUAN LUIS - 7 assessed: 12/10/23 Feeling nervous, anxious, or on edge: 0 = Not at all Not being able to stop or control worryin = Not at all Worrying too much about different things: 0 = Not at all Trouble relaxin = Not at all Being so restless that it is hard to sit still: 0 = Not at all Becoming easily annoyed or irritable: 0 = Not at all Feeling afraid as if something awful might happen: 0 = Not at all Total JUAN LUIS-7 score (0-4 normal; 5-9 mild; 10-14 moderate; 15-21 severe): 0 Source: Developed by Drs. Henry Whiteside, Dora Roblero, Reggie Peterson and colleagues, with an educational keny from [employer]. Review of Systems Const All systems reviewed & are unremarkable except as noted in HPI and below Card Reports no additional complaints Resp Reports no additional complaints GI Reports no additional complaints Reports no additional complaints Physical exam (Primary Care) Vital Signs: Last Vital Signs Pulse 66 04/29/24 11:05 BP 134/78 04/29/24 11:05 Pulse Ox 98 04/29/24 11:05 Oxygen Delivery Method Room Air 04/29/24 11:05 BMI result Body Mass Index 29.4 Tobacco/Smoking Status: Tobacco use Status Tobacco use date assessed 04/29/24 04/29/24 11:06 Patient Tobacco Use Status Never used Tobacco 04/29/24 11:05 e-Cigarette/Vaping Use Never Used 04/29/24 11:05 Thrive Assessment: Date of Thrive Assessment Date Thrive assessed 12/10/23 04/29/24 11:05 Currently or been in a relationship where the following occur: No concerns reported Const General: no acute distress HENMT Head: Yes normal to inspection Resp Auscultation: clear to auscultation bilaterally Cardio Rhythm: regular rhythm Heart sounds: S1 normal heart sound present and S2 normal heart sound present GI Inspection: Yes normal to inspection Palpation (GI): Soft to palpation Percussion: Yes normal to percussion Assessment and Plan Assessment & Plan (1) UTI (urinary tract infection): Code(s): N39.0 - Urinary tract infection, site not specified Plan: MACROBID IS PRESCRIBED AND SUPPORTIVE CARE DISCUSSED WITH THE PATIENT. SHE WILL HAVE A REPEAT URINE CULTURE 2 WEEKS AFTER TREATMENT Orders: Orders Urine Culture Today N39.0 - Urinary tract infection, site not specified Medications: New nitrofurantoin monohyd/m-cryst 100 mg (Macrobid) must administer with a meal/food 100 mg PO Q12H 14 caps 0RF 7 days Coding Level of Care Code Est Pt Level 3 (76833) Diagnoses UTI (urinary tract infection) N39.0
== END 2024-04-29 13:45 | disposition home or self-care (01) ==
PROVIDERS: PCP Internal Medicine; Visit Provider Internal Medicine
DX: N39.0 Urinary tract infection, site not specified (principal)
CPT/HCPCS: 99213

== ENCOUNTER 2024-05-26 09:28 | Outpatient (REF) | payer MEDICARE, MEDICAID, SELFPAY | END 2024-05-26 09:29 | disposition home or self-care (01) | LOC: HO.HMGCLDS 09:28 | PROVIDERS: PCP Internal Medicine; Visit Provider Internal Medicine | DX: Z13.89 Encounter for screening for other disorder (principal) ==

== ENCOUNTER 2024-05-27 08:38 | Outpatient (REF) | payer MEDICARE, MEDICAID, SELFPAY | END 2024-05-27 08:39 | disposition home or self-care (01) | LOC: HO.HMGCLDS 08:38 | PROVIDERS: PCP Internal Medicine; Visit Provider Internal Medicine | DX: N39.0 Urinary tract infection, site not specified (principal); R82.79 Other abnormal findings on microbiological examination of urine | CPT/HCPCS: 87086; 87088; 87186 ==

== ENCOUNTER 2024-06-29 13:56 | Outpatient (AMB) | payer MEDICARE, MEDICAID, SELFPAY ==
[2024-06-29 14:09] VITALS: BP 136/76; PULSE 104; O2SAT 98; BMI 28.9
--- NOTE | 2024-06-29 14:09 | MHC.PC.OV ---
Vital Signs 06/29/24 14:09 Height 5 ft 6 in Weight 179 lb BMI 28.9 BP 136/76 Blood Pressure Location Lt brachial Position Sitting Pulse 104 H Pulse Source Pulse Oximeter Pulse Oximetry (%) 98 Oxygen Delivery Method Room Air Intake Visit Reasons: hand/shoulder pain Intake Note: Pt is here today for a sick visit. Pt c/o tingling in her R arm. Allergies dapagliflozin Adverse Reaction (Intermediate, Verified 06/29/24 14:12) candidiasis empagliflozin [From Jardiance] Adverse Reaction (Intermediate, Verified 06/29/24 14:12) candidiasis glipizide Adverse Reaction (Intermediate, Verified 06/29/24 14:12) leg edema Medication List - Last Reconciled 06/29/24 by Ericka Pham MD albuterol sulfate 90 mcg/actuation 2 puffs inhalation Q6H PRN amlodipine 2.5 mg PO DAILY blood sugar diagnostic (FreeStyle Lite Strips) check glucose once a day cholecalciferol (vitamin D3) 50 mcg PO DAILY famotidine (Pepcid) 20 mg PO DAILY fluticasone propionate 50 mcg/actuation 1 spray intranasal DAILY ketoconazole 2% 1 appl topical DAILY lancets (FreeStyle Lancets) check glucose once a day Levoxyl (levothyroxine) 88 mcg PO DAILY NS meclizine 25 mg PO BID PRN metformin ER 1,500 mg (3 x 500 mg) PO DAILY olmesartan 40 mg PO DAILY rosuvastatin 20 mg PO DAILY NS Tobacco use date assessed: 06/29/24 Fall risk assessment: No Falls in past year Last assessed Fall Risk: 06/29/24 Dental Screening Dental Screen Date: 04/12/24 HPI hand/shoulder pain HPI Details Patient presents for the follow-up. She completed a course of Bactrim for recurrent UTI. 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 She tried physical therapy without significant improvement. She thinks her side effects related to taking Bactrim. Patient has been taking medications for hypertension hyperlipidemia type 2 diabetes but has not been monitoring her blood glucose. [facility] Medical History (Updated 06/29/24 @ 15:05 by Ericka Pham MD) Shoulder pain, right Nolasco's palsy DILL (dyspnea on exertion) Multinodular goiter Sore throat Hyperlipidemia Osteoporosis Skin cancer, basal cell Cervical radiculopathy Hypothyroidism FREDY (obstructive sleep apnea) Chronic lower back pain HTN (hypertension) DM type 2 (diabetes mellitus, type 2) Surgical History Hx of cataract surgery Family History Father No problems noted. Mother Cataract Social History Household Members: Spouse Housing: House Alcohol intake: never Patient Tobacco Use Status: Never used Tobacco e-Cigarette/Vaping Use: Never Used service: No Current occupational status: retired Cognitive needs: No Hearing needs: No Vision needs: No Questionnaire Thrive Questionnaire Date Thrive assessed: 04/29/24 I am a: Patient What is your living situation today?: I have a steady place to live Within the past 12 months, did the food you bought not last and you didn't have the money to get more?: I choose not to answer this question Within the past 12 months, did you worry whether your food would run out before you got money to buy more?: I choose not to answer this question Do you have trouble paying for medicines?: I choose not to answer this question Do you have trouble getting transportation to medical appointments?: I choose not to answer this question Do you have trouble paying your heating and electricity bill?: I choose not to answer this question Do you have trouble taking care of your child, family member or friend?: I choose not to answer this question Do you have trouble with day-to-day activities such as bathing, preparing meals, shopping, managing finances, etc.?: I choose not to answer this question Are you currently unemployed and looking for a job?: I choose not to answer this question Are you interested in more education?: I choose not to answer this question Please select the resources that you would like help with: None Currently or been in a relationship where the following occur: No concerns reported THRIVE Score: 0 JUAN LUIS-7 AMB Questionnaire JUAN LUIS-7 Date JUAN LUIS - 7 assessed: 12/10/23 Source: Developed by Drs. Henry Whiteside, Dora Roblero, Reggie Peterson and colleagues, with an educational keny from [employer]. Review of Systems Const All systems reviewed & are unremarkable except as noted in HPI and below ENT Reports no additional complaints Card Reports no additional complaints Resp Reports no additional complaints GI Reports no additional complaints Reports no additional complaints Physical exam (Primary Care) Vital Signs: Last Vital Signs Pulse 104 H 06/29/24 14:09 BP 136/76 06/29/24 14:09 Pulse Ox 98 06/29/24 14:09 Oxygen Delivery Method Room Air 06/29/24 14:09 BMI result Body Mass Index 28.9 Tobacco/Smoking Status: Tobacco use Status Tobacco use date assessed 06/29/24 06/29/24 14:15 Patient Tobacco Use Status Never used Tobacco 06/29/24 14:15 e-Cigarette/Vaping Use Never Used 06/29/24 14:15 Thrive Assessment: Date of Thrive Assessment Date Thrive assessed 04/29/24 06/29/24 14:15 Currently or been in a relationship where the following occur: No concerns reported Const General: no acute distress Eyes General: appearance normal, both eyes and all related structures Resp Effort & Inspection: normal respiratory effort Auscultation: clear to auscultation bilaterally Cardio Rhythm: regular rhythm Heart sounds: S1 normal heart sound present and S2 normal heart sound present GI Inspection: Yes normal to inspection Palpation (GI): Soft to palpation Extrem Other: Dose decreased range of motion and discomfort with the motion when reaching overhead or behind back of the right shoulder. Motor strength is 5/5 bilaterally proximal and distal upper extremities. Coding Level of Care Code Est Pt Level 4 (50445) Diagnoses UTI (urinary tract infection) N39.0 DM type 2 (diabetes mellitus, type 2) E11.9 HTN (hypertension) I10 Hyperlipidemia E78.5 Shoulder pain, right M25.511 Assessment & Plan Assessment & Plan (1) UTI (urinary tract infection): Code(s): N39.0 - Urinary tract infection, site not specified Category: Medical Plan: For frozen urinary tract infection patient was advised to try estradiol vaginal cream and repeat urine culture (2) DM type 2 (diabetes mellitus, type 2): Comment: Cannot tolerate 2000 mg of metformin, stomach upset Code(s): E11.9 - Type 2 diabetes mellitus without complications Category: Medical Plan: Continue current medications, ADA diet check A1c follow-up in 1 month (3) HTN (hypertension): Code(s): I10 - Essential (primary) hypertension Category: Medical Plan: Continue current medications (4) Hyperlipidemia: Code(s): E78.5 - Hyperlipidemia, unspecified Category: Medical Plan: Continue statin (5) Shoulder pain, right: Code(s): M25.511 - Pain in right shoulder Category: Medical Plan: Patient was advised to continue home exercises for the right shoulder osteoarthrtitis. Orders: Orders Urine Culture Today N39.0 - Urinary tract infection, site not specified Medications: New estradiol 0.01%(0.1mg/gram) apply pea size to urethra daily 42.5 grams 1RF Refilled Levoxyl (levothyroxine) 88 mcg PO DAILY 90 tabs 3RF NS E03.9 - Hypothyroidism, unspecified metformin ER 1,500 mg (3 x 500 mg) PO DAILY 270 tabs 3RF amlodipine 2.5 mg PO DAILY 90 tabs 3RF Discontinued rosuvastatin Discontinued Reason: Doctor's Order 10 mg PO DAILY 90 tabs 3RF NS
== END 2024-06-29 15:06 | disposition home or self-care (01) ==
PROVIDERS: PCP Internal Medicine; Visit Provider Internal Medicine
DX: N39.0 Urinary tract infection, site not specified (principal); E11.9 Type 2 diabetes mellitus without complications; I10 Essential (primary) hypertension; E78.5 Hyperlipidemia, unspecified; M25.511 Pain in right shoulder

== ENCOUNTER → 2024-06-29 13:56 | Outpatient (BNVA) | payer MEDICARE, MEDICAID, SELFPAY | PROVIDERS: PCP Internal Medicine; Visit Provider Internal Medicine | DX: N39.0 Urinary tract infection, site not specified (principal); E11.9 Type 2 diabetes mellitus without complications; E78.5 Hyperlipidemia, unspecified; I10 Essential (primary) hypertension; M25.511 Pain in right shoulder | CPT/HCPCS: 99212 ==

== ENCOUNTER 2024-08-29 13:59 | Outpatient (AMB) | payer MEDICARE, MEDICAID, SELFPAY ==
--- NOTE | 2024-08-29 14:13 | A.OFFVIS_ITS ---
Intake Vital Signs 08/29/24 14:15 Height 5 ft 6 in Weight 179 lb BMI 28.9 BP 126/74 Blood Pressure Location Lt brachial Position Sitting Pulse 89 Pulse Source Pulse Oximeter Pulse Oximetry (%) 98 Oxygen Delivery Method Room Air Intake Visit Reasons: SWV G0439 Intake Note: Pt is here today for a AWV. Pt states that she has been having tingling in her R arm. Allergies dapagliflozin Adverse Reaction (Intermediate, Verified 08/29/24 14:17) candidiasis empagliflozin [From Jardiance] Adverse Reaction (Intermediate, Verified 08/29/24 14:17) candidiasis glipizide Adverse Reaction (Intermediate, Verified 08/29/24 14:17) leg edema Medication List - Last Reconciled 08/29/24 by Ericka Pham MD albuterol sulfate 90 mcg/actuation 2 puffs inhalation Q6H PRN amlodipine 2.5 mg PO DAILY blood sugar diagnostic (FreeStyle Lite Strips) check glucose once a day cholecalciferol (vitamin D3) 50 mcg PO DAILY estradiol 0.01%(0.1mg/gram) apply pea size to urethra daily famotidine (Pepcid) 20 mg PO DAILY fluticasone propionate 50 mcg/actuation 1 spray intranasal DAILY ketoconazole 2% 1 appl topical DAILY lancets (FreeStyle Lancets) check glucose once a day Levoxyl (levothyroxine) 88 mcg PO DAILY NS meclizine 25 mg PO BID PRN metformin ER 1,500 mg (3 x 500 mg) PO DAILY olmesartan 40 mg PO DAILY omeprazole 40 mg PO DAILY rosuvastatin 20 mg PO DAILY NS HPI SWV G0439 HPI Details Initiated the conversation about Advanced Directives. Advanced Directives help? patients prepare for current and future decisions about their medical treatment? and place of care. Discussed with patient that it is a process where a patients? current condition and prognosis are reviewed, their wishes for information? regarding their illness are elicited, and likely medical dilemmas are presented? and options discussed. The form can be amended as needed, reviewed yearly and? make changes as needed IPPE/AWV ? year old presents? for her ? Annual? Wellness Visit, initial visit.? Medical / Social History Reviewed? Past Medical History ?Yes? . ? [place]? of Care / Care Team list updated ?Yes . ? Surgical/Hospitalization? History ?Yes . ? Current Medications? (including OTC and supplements) ?Yes . ? Family History ?Yes? . ? Tobacco? Control form ?Yes . ? AUDIT-C (Alcohol use) form? ?Yes . ? Illicit drug use in Social? History ?Yes . ? Current diagnosis of? depression? ?No ? Appropriate PHQ2/PHQ9? completed ?Yes . ? Data entered by ?Medical? Roadway Technician and reviewed by provider ? Fall Risk ? Fall? History? Have you had any falls with? injury in the past year? ?No . ? Have you had two or more? falls in the past year? ?No . ? Fall Risk Assessment: ?No? falls in the past year . ? HRA filled out by? the patient, reviewed by Provider and scanned. ? IPPE/AWV ? Balance? [place]? ?Yes . ? Tandem? walk ?Yes . ? Walk and? Turn ?Yes . ? Rise from? sit to stand ?Yes . ?Vision? Corrective? lens ?Yes ? Vision? screen ? Up-to-date, has an appointment [] for vision? screening and glaucoma screening ?Hearing? Whisper? test ?pass .? Initiated the conversation about Advanced Directives. Advanced Directives help? patients prepare for current and future decisions about their medical treatment? and place of care. Discussed with patient that it is a process where a patients? current condition and prognosis are reviewed, their wishes for information? regarding their illness are elicited, and likely medical dilemmas are presented? and options discussed. The form can be amended as needed, reviewed yearly and? make changes as needed Written? Plan?Completed. See Patient? Documents. [facility] Medical History Shoulder pain, right Nolasco's palsy DILL (dyspnea on exertion) Multinodular goiter Sore throat Hyperlipidemia Osteoporosis Skin cancer, basal cell Cervical radiculopathy Hypothyroidism FREDY (obstructive sleep apnea) Chronic lower back pain HTN (hypertension) DM type 2 (diabetes mellitus, type 2) Surgical History Hx of cataract surgery Family History Father No problems noted. Mother Cataract Social History Household Members: Spouse Housing: House Alcohol intake: never Patient Tobacco Use Status: Never used Tobacco e-Cigarette/Vaping Use: Never Used service: No Current occupational status: retired Cognitive needs: No Hearing needs: No Vision needs: No Questionnaire Medicare Wellness Checkup [age] What gender do you identify with?: female During the past 4 weeks, how much have you been bothered by emotional problems such as feeling anxious, depressed, irritable, sad or downhearted, and blue?: not at all During the past 4 weeks, has your physical & emotional health limited your social activities with family, friends, neighbors, or groups?: not at all During the past 4 weeks, how much bodily pain have you generally had?: very mild pain During the past 4 weeks, was someone available to help you if you needed & wanted help?: yes, as much as I wanted During the past 4 weeks, what was the hardest physical activity you could do for at least 2 minutes?: light Can you get to places out of walking distance without help? (For eg., can you travel alone on buses, taxis or drive your car?): Yes Can you go shopping for groceries or clothes without someone's help?: Yes Can you prepare your own meals?: Yes Can you do your housework without help?: Yes Because of any health problems, do you need the help of another person with your personal care needs such as eating, bathing, dressing or getting around the house?: No Can you handle your own money without help?: Yes During the past 4 weeks, how would you rate your health in general?: good During the past 4 weeks how have things been going for you?: good & bad parts about equal Are you having difficulties driving your car?: no Do you always fasten your seat belt when you are in a car?: yes, usually During past 4 weeks, have you been bothered by the following: never: Sexual problems?, Trouble eating well?, Teeth or denture problems?, Problems using the telephone? and Tiredness or fatigue? and seldom: Falling or dizzy when standing up Have you fallen 2 or more times in the past year?: No Are you afraid of falling?: No Are you a smoker?: no During the past 4 weeks, how many drinks of wine, beer, or other alcoholic beverages did you have?: no alcohol at all Do you exercise for about 20 minutes 3 or more times a week?: yes, some of the time Have you been given information to help with the following?: no: Hazards in your house that might hurt you? and no: Keeping track of your medications? How often do you have trouble taking medicines the way you have been told to take them?: I always take medicine as prescribed How confident are you that you can control & manage most of your health problems?: somewhat confident What is your race?: White Mini Mental State Exam (MMSE) Orientation What is the (year) (season) (date) (day) (month)?: year, season, date, day and month Where are we (state) (county) (town or city) (hospital) (floor)?: state, county, town or city, hospital/clinic and floor Registration Name of 3 unrelated objects clearly and slowly, then ask patient to repeat all 3 of them. (1st repeat determines score. Make sure they can repeat all three): object 1, object 2 and object 3 Attention & Calculation (CHOOSE ONE) Spell WORLD backwards (DLROW): 5 letters Recall Ask patient to repeat the 3 items from question #3.: object 1, object 2 and object 3 Language Show patient a wristwatch & ask what it is. Repeat for pencil.: watch and pencil Ask the patient to repeat the phrase 'No ifs, ands, or buts' after you.: correct Ask the patient to 'take a piece of paper with their right hand' 'fold paper in half' 'place paper on floor': take paper in right hand, fold paper in half and place paper on floor Print the sentence 'CLOSE YOUR EYES' on a piece. If patient actually closes eyes then score.: followed written direction Give patient a blank piece of paper & ask to write a sentence. Score if it contains a noun & verb.: sentence contains subject and verb Score Score: 29 PHQ-9 Over the last 2 weeks, how often have you been bothered by any of the following problems? 1. Little interest or pleasure in doing things: not at all 2. Feeling down, depressed, or hopeless: not at all 3. Trouble falling or staying asleep, or sleeping too much: not at all 4. Feeling tired or having little energy: not at all 5. Poor appetite or overeating: not at all 6. Feeling bad about yourself - or that you are a failure or have let yourself or your family down: not at all 7. Trouble concentrating on things, such as reading the newspaper or watching television: not at all 8. Moving or speaking so slowly that other people could have noticed. Or the opposite - being so fidgety or restless that you have been moving around a lot more than usual: not at all 9. Thoughts that you would be better off or of hurting yourself in some way: not at all Total score: 0 Depression Screening Interpretation: Negative Depression Screening Done: Yes 57924 - PHQ-9 Billing: Yes Source: Developed by Drs. Henry Whiteside, Dora Roblero, Reggie Peterson and colleagues, with an educational keny from [employer]. Review of Systems Const All systems reviewed & are unremarkable except as noted in HPI and below Reports no additional complaints Eyes Reports no additional complaints ENT Reports no additional complaints Card Reports no additional complaints Resp Reports no additional complaints GI Reports no additional complaints Reports no additional complaints Physical Exam Vital Signs: Last Vital Signs Pulse 89 08/29/24 14:15 BP 126/74 08/29/24 14:15 Pulse Ox 98 08/29/24 14:15 Oxygen Delivery Method Room Air 08/29/24 14:15 BMI result Body Mass Index 28.9 Const General: no acute distress HEENT Head: Yes normal to inspection Ears: hearing grossly normal bilaterally Mouth: Normal oral and palatal mucosa present Teeth and gingiva: dentition normal Throat: Yes posterior oropharynx normal Eyes General: appearance normal, both eyes and all related structures Neck Neck: Yes no lymphadenopathy and Yes supple Resp Effort & Inspection: normal respiratory effort Auscultation: clear to auscultation bilaterally Cardio Rhythm: regular rhythm Heart sounds: S1 normal heart sound present and S2 normal heart sound present GI Inspection: Yes normal to inspection Palpation (GI): Soft to palpation Percussion: Yes normal to percussion Auscultation: normal bowel sounds Extrem General: Yes no clubbing, cyanosis or edema Assessment & Plan Assessment & Plan (1) DM type 2 (diabetes mellitus, type 2): Comment: Cannot tolerate 2000 mg of metformin, stomach upset Code(s): E11.9 - Type 2 diabetes mellitus without complications Plan: A1C IS 8.3, improved, ADA diet, exercise, cont meds, f/u 4 months (2) HTN (hypertension): Code(s): I10 - Essential (primary) hypertension Plan: cont meds (3) Hypothyroidism: Code(s): E03.9 - Hypothyroidism, unspecified Plan: cont Levoxyl (4) Hyperlipidemia: Code(s): E78.5 - Hyperlipidemia, unspecified Plan: cont statin Orders: Orders Lipid Panel 4 Months E03.9 - Hypothyroidism, unspecified, E11.9 - Type 2 diabetes mellitus without complications, E78.5 - Hyperlipidemia, unspecified, I10 - Essential (primary) hypertension Hemoglobin A1c 4 Months E03.9 - Hypothyroidism, unspecified, E11.9 - Type 2 diabetes mellitus without complications, E78.5 - Hyperlipidemia, unspecified, I10 - Essential (primary) hypertension AMB Hemoglobin A1c Today Z13.9 - Encounter for screening, unspecified Comprehensive [place]. Panel Fast 4 Months E03.9 - Hypothyroidism, unspecified, E11.9 - Type 2 diabetes mellitus without complications, E78.5 - Hyperlipidemia, unspecified, I10 - Essential (primary) hypertension Complete Blood Count Auto Diff 4 Months E03.9 - Hypothyroidism, unspecified, E11.9 - Type 2 diabetes mellitus without complications, E78.5 - Hyperlipidemia, unspecified, I10 - Essential (primary) hypertension Microalbumin, Random (w Creat) 4 Months E03.9 - Hypothyroidism, unspecified, E11.9 - Type 2 diabetes mellitus without complications, E78.5 - Hyperlipidemia, unspecified, I10 - Essential (primary) hypertension Medications: New rosuvastatin 10 mg PO DAILY 90 tabs 3RF omeprazole 40 mg PO DAILY 90 caps 1RF Discontinued rosuvastatin Crestor 20 mg brand name medically necessary Discontinued Reason: Doctor's Order 20 mg PO DAILY 90 tabs 3RF NS famotidine (Pepcid) Discontinued Reason: Doctor's Order 20 mg PO DAILY 90 tabs 3RF Quality Reporting (2019) Depression/Bipolar (159/160/161/177) PHQ-9: Total score: 0 Coding Level of Care Code Medicare Subsequent (G0439) Diagnoses DM type 2 (diabetes mellitus, type 2) E11.9 HTN (hypertension) I10 Hypothyroidism E03.9 Hyperlipidemia E78.5 CPT Codes Advance Care Planning - Advance Care Planning discussion: On file, no changes ([id number]) Advance Care Planning - Time spent: 1-15 minutes, on File ([id number]) Additional Codes PHQ-9 - 90328 - PHQ-9 Billing: Yes ([id number]) Advance Care Planning Advance Care Planning discussion: On file, no changes Forms completed: Health Care Proxy Time spent: 1-15 minutes, on File Did not discuss due to Cultural/Spiritual beliefs: Yes
[2024-08-29 14:15] VITALS: BP 126/74; PULSE 89; O2SAT 98; BMI 28.9
== END 2024-08-29 15:03 | disposition home or self-care (01) ==
PROVIDERS: PCP Internal Medicine; Visit Provider Internal Medicine
DX: Z00.00 Encounter for general adult medical examination without abnormal findings (principal); E11.69 Type 2 diabetes mellitus with other specified complication; I10 Essential (primary) hypertension; E03.9 Hypothyroidism, unspecified; E78.5 Hyperlipidemia, unspecified

== ENCOUNTER → 2024-08-29 13:59 | Outpatient (BNVA) | payer MEDICARE, MEDICAID, SELFPAY | PROVIDERS: PCP Internal Medicine; Visit Provider Internal Medicine | DX: Z00.00 Encounter for general adult medical examination without abnormal findings (principal); E11.9 Type 2 diabetes mellitus without complications; I10 Essential (primary) hypertension; E03.9 Hypothyroidism, unspecified; E78.5 Hyperlipidemia, unspecified | CPT/HCPCS: 96127 ==

== ENCOUNTER → 2024-10-27 08:47 | Outpatient (BNVA) | payer MEDICARE, MEDICAID, SELFPAY | PROVIDERS: PCP Internal Medicine; Visit Provider Internal Medicine | DX: D64.9 Anemia, unspecified (principal); I10 Essential (primary) hypertension; E11.9 Type 2 diabetes mellitus without complications; R07.89 Other chest pain | CPT/HCPCS: 96127; 99212 ==

== ENCOUNTER 2025-01-02 13:44 | Outpatient (AMB) | payer MEDICARE, MEDICAID, SELFPAY ==
[2025-01-02 13:55] VITALS: BP 130/78; PULSE 93; RESP 18; TEMP 36.7; O2SAT 98; BMI 28.4
--- NOTE | 2025-01-02 13:55 | MHC.PC.OV ---
Vital Signs 01/02/25 13:55 Height 5 ft 6 in Weight 176 lb BMI 28.4 BP 130/78 Blood Pressure Location Lt brachial Position Sitting Respiration 18 Pulse 93 Pulse Source Pulse Oximeter Temp 98.1 F Temp Source Oral Pulse Oximetry (%) 98 Oxygen Delivery Method Room Air Intake Visit Reasons: 4 months f/up Allergies dapagliflozin Adverse Reaction (Intermediate, Verified 01/02/25 13:58) candidiasis empagliflozin [From Jardiance] Adverse Reaction (Intermediate, Verified 01/02/25 13:58) candidiasis glipizide Adverse Reaction (Intermediate, Verified 01/02/25 13:58) leg edema Tobacco use date assessed: 01/02/25 Dental Screening Dental Screen Date: 10/27/24 HPI 4 months f/up HPI Details Patient presents for the follow-up of hypertension hyperlipidemia type 2 diabetes chronic iron deficiency anemia. She denies complaints she has been taking iron supplement every other day. Patient denies hematochezia melena. She refused to see counter help for workup of iron deficiency anemia. [facility] Medical History Shoulder pain, right Nolasco's palsy DILL (dyspnea on exertion) Multinodular goiter Sore throat Hyperlipidemia Osteoporosis Skin cancer, basal cell Cervical radiculopathy Hypothyroidism FREDY (obstructive sleep apnea) Chronic lower back pain HTN (hypertension) DM type 2 (diabetes mellitus, type 2) Surgical History Hx of cataract surgery Family History Father No problems noted. Mother Cataract Social History Household Members: Spouse Housing: House Alcohol intake: never Patient Tobacco Use Status: Never used Tobacco e-Cigarette/Vaping Use: Never Used service: No Current occupational status: retired Cognitive needs: No Hearing needs: No Vision needs: No Questionnaire Thrive Questionnaire Date Thrive assessed: 10/27/24 JUAN LUIS-7 AMB Questionnaire JUAN LUIS-7 Date JUAN LUIS - 7 assessed: 10/27/24 Source: Developed by Drs. Henry Whiteside, Dora Roblero, Reggie Peterson and colleagues, with an educational keny from [employer]. Review of Systems Const All systems reviewed & are unremarkable except as noted in HPI and below ENT Reports no additional complaints Card Reports no additional complaints Resp Reports no additional complaints GI Reports no additional complaints Reports no additional complaints Physical exam (Primary Care) Vital Signs: Last Vital Signs Temp 98.1 F 01/02/25 13:55 Pulse 93 01/02/25 13:55 Resp 18 01/02/25 13:55 BP 130/78 01/02/25 13:55 Pulse Ox 98 01/02/25 13:55 Oxygen Delivery Method Room Air 01/02/25 13:55 BMI result Body Mass Index 28.4 Tobacco/Smoking Status: Tobacco use Status Tobacco use date assessed 01/02/25 01/02/25 14:01 Patient Tobacco Use Status Never used Tobacco 01/02/25 14:01 e-Cigarette/Vaping Use Never Used 01/02/25 14:01 Thrive Assessment: Date of Thrive Assessment Date Thrive assessed 10/27/24 01/02/25 14:01 Const General: no acute distress HENMT Head: Yes normal to inspection Throat: Yes posterior oropharynx normal Eyes General: appearance normal, both eyes and all related structures Resp Effort & Inspection: normal respiratory effort Auscultation: clear to auscultation bilaterally Cardio Rhythm: regular rhythm Heart sounds: S1 normal heart sound present and S2 normal heart sound present GI Inspection: Yes normal to inspection Palpation (GI): Soft to palpation Percussion: Yes normal to percussion Auscultation: normal bowel sounds Extrem General: Yes no clubbing, cyanosis or edema Coding Level of Care Code Est Pt Level 4 (77421) Complex EM visit Add On G2211 Diagnoses Iron deficiency anemia D50.9 DM type 2 (diabetes mellitus, type 2) E11.9 HTN (hypertension) I10 Hyperlipidemia E78.5 Hypothyroidism E03.9 Assessment & Plan Assessment & Plan (1) Iron deficiency anemia: Comment: Patient refused to see GI for workup iron deficiency anemia Code(s): D50.9 - Iron deficiency anemia, unspecified Category: Medical Plan: Continue iron supplement check CBC and iron count. Patient prefers to go to [facility] (2) DM type 2 (diabetes mellitus, type 2): Comment: Cannot tolerate 2000 mg of metformin, stomach upset Code(s): E11.9 - Type 2 diabetes mellitus without complications Category: Medical Plan: ADA diet regular exercise discussed with the patient. Continue metformin return for fasting blood work including A1c (3) HTN (hypertension): Code(s): I10 - Essential (primary) hypertension Category: Medical Plan: Continue current medications (4) Hyperlipidemia: Code(s): E78.5 - Hyperlipidemia, unspecified Category: Medical Plan: Continue statin (5) Hypothyroidism: Code(s): E03.9 - Hypothyroidism, unspecified Category: Medical Plan: Continue Levothyroxine Orders: Orders Complete Blood Count Auto Diff Today D50.9 - Iron deficiency anemia, unspecified, E11.9 - Type 2 diabetes mellitus without complications, E78.5 - Hyperlipidemia, unspecified, I10 - Essential (primary) hypertension IRON PROFILE Today D50.9 - Iron deficiency anemia, unspecified, E11.9 - Type 2 diabetes mellitus without complications, E78.5 - Hyperlipidemia, unspecified, I10 - Essential (primary) hypertension Comprehensive [place]. Panel Fast Today D50.9 - Iron deficiency anemia, unspecified, E11.9 - Type 2 diabetes mellitus without complications, E78.5 - Hyperlipidemia, unspecified, I10 - Essential (primary) hypertension Hemoglobin A1c Today D50.9 - Iron deficiency anemia, unspecified, E11.9 - Type 2 diabetes mellitus without complications, E78.5 - Hyperlipidemia, unspecified, I10 - Essential (primary) hypertension Lipid Panel Today D50.9 - Iron deficiency anemia, unspecified, E11.9 - Type 2 diabetes mellitus without complications, E78.5 - Hyperlipidemia, unspecified, I10 - Essential (primary) hypertension Microalbumin, Random (w Creat) Today D50.9 - Iron deficiency anemia, unspecified, E11.9 - Type 2 diabetes mellitus without complications, E78.5 - Hyperlipidemia, unspecified, I10 - Essential (primary) hypertension TSH reflex Free T4 Today E03.9 - Hypothyroidism, unspecified Hemoglobin A1c 3 Months D50.9 - Iron deficiency anemia, unspecified, E03.9 - Hypothyroidism, unspecified, E11.9 - Type 2 diabetes mellitus without complications, I10 - Essential (primary) hypertension Comprehensive [place]. Panel Fast 3 Months D50.9 - Iron deficiency anemia, unspecified, E03.9 - Hypothyroidism, unspecified, E11.9 - Type 2 diabetes mellitus without complications, I10 - Essential (primary) hypertension Complete Blood Count Auto Diff 3 Months D50.9 - Iron deficiency anemia, unspecified, E03.9 - Hypothyroidism, unspecified, E11.9 - Type 2 diabetes mellitus without complications, I10 - Essential (primary) hypertension Lipid Panel 3 Months D50.9 - Iron deficiency anemia, unspecified, E03.9 - Hypothyroidism, unspecified, E11.9 - Type 2 diabetes mellitus without complications, I10 - Essential (primary) hypertension
--- OUTSIDE RECORDS SUMMARY | 2025-01-02 15:54 | XMS_ITS | Patient Health Record ---
[facility] [place] Address [address] [place] [address] Care Team Providers Care Vocational Ed Instructor Name Role Phone Ericka Pham MD Primary Care Provider Heidia Benita Art Unavailable [phone] Allergies Allergen (clinical drug ingredient) Drug/Non Drug Allergy documented on EMR Reaction Allergy Type Onset Date Status Novocain Unknown Drug Allergy Active Reason For Referral No Information Medications Medication SIG (Take, Route, Frequency, Duration) Notes Start Date End Date Status metFORMIN HCl Active Levoxyl Active Crestor Active amLODIPine Besy-Benazepril HCl 2.5-10 MG as directed Orally Active Lisinopril Not-Takin g Immunizations Vaccine Route Administration Date Status Comme nts Influenza Unknown 10/24/2020 Refused Social History Alcohol Screen Question Answer Notes Did you have a drink containing alcohol in the p ast year? No Points 0 Interpretation Negative Tobacco use other than smoking: Question Answer Notes Are you an other tobacco user? No Problems Problem Type SNOMED Code ICD Code Onset Dates Problem Status W/U Status Risk Notes Problem Type II diabetes mellitus without complication (493470239) Type 2 diabetes mellitus without complications (E11.9) Active confirmed Plan Of Treatment Pending Test Test Name Order Date [id number] NAIL, 6 OR MORE 07/17/2020 [id number] NAIL, -10/24/2020 [id number] NAIL, -12/01/2014 [id number] NAIL, -01/25/2021 [id number] NAIL, -04/26/2021 [id number] NAIL, -08/30/2021 [id number] NAIL, -5 02/26/2016 [id number] Destruction, 1-14 10/24/2020 [id number] Plate 01/25/2021 [id number]-Mectwshh Plate 04/26/2021 [id number]-Nhqdrzmh Plate 12/20/2021 [id number]-Lgrnemte Plate 08/30/2021 29841- Debride <25 sq cm 02/20/2015 Insurance Providers Payer Name Payer Address Payer Phone Subscriber Number Group Number Insured Name Patient Relationship to Insured Coverage Start Date Coverage End Date Medicare National Govt Svcs Inc [address] [place] [address] [id number] Jo Ann Lozada Self - patient is the insured Medical (General) History Medical History History ICD Code Arthritis Diabetic High blood pressure Thyroid disorder Glaucoma Surgical History Surgery Date(Month/Year) thyroid 30 yrs ago gall bladder 18 yrs ago glaucoma L eye 6 R eye right cataract sx 04/2020
--- OUTSIDE RECORDS SUMMARY | 2025-01-02 15:54 | XMS_ITS | Clinical Summary ---
Author Organization [facility] Address [address] [place] [address] Care Team Providers Care Client Technical Professional Name Role Phone Unavailable Primary Care Provider Unavailabl e Social History Tobacco Use Types Packs/Day Years Used Date Smoking Tobacco: Never Assessed Sex and Gender Information Value Date Recorded Sex Assigned at Not on file Gender Identity Not on file Sexual Orientation Not on file Plan of Treatment Health Maintenance Due Date Last Done Comments Hepatitis C Virus Screening 1945 DTaP/Tdap/Td Vaccines (1 - Tdap) 1966 Pneumococcal Vaccines 50+ (1 of 1 - PCV) 1997 Zoster (Shingles) Vaccine (1 of 2) 1997 RSV Vaccine 60 years and old er and Patients (1 - 1-dose 75+ series) 2022 COVID-19 Vaccine ( - 2023-2 5 season) 2024 Hepatitis B Vaccines Aged Out No long er eligible based on patient's age to complete this topic
--- OUTSIDE RECORDS SUMMARY | 2025-01-02 15:54 | XMS_ITS ---
[facility] Organization [facility] Address [address] [place] [address] [place] [address] Care Team Providers Care Sourcing Intern Name Role Phone Vero DE LA CRUZ, Ericka Primary Care Provider Heidia Benita Art [phone] REASON FOR VISIT cancelled Encounters Encounter Location Date Provider Diagnosis [address] [address] 12/07/2024 Benita Martinez Plan Of Treatment No Information Progress Notes * Jo Ann LOZADA KDOB: [birth year] (79 yo F)Acc No.[id number]:12/07/2024 Progress Note Patient:Jo Ann ÁLVAREZ Provider:Cruz Martinez DPM :1945???Age:79 Y???Sex:Female D ate:12/07/2024 Address[address] Pcp:Ericka Pham MD Subjective: * Chief Complaints: * ???1. Cancelled. * Medical History:? Objective: * Vitals:? Assessment: Plan: * Treatment: * Images: * The named appointment provid er may or may not be the originator of this progress note, and it is not deemed complete until electronically signed by the appointment provider. Sign off status: Pending * Provider:Cruz Martinez DPM Date:?2024 Generated for Armando simon/Carlos/eTstephansmitting on:?01/02/2025 03:53 PM EDT
== END 2025-01-02 14:26 | disposition home or self-care (01) ==
LOC: HO.HMCC 13:44
PROVIDERS: PCP Internal Medicine; Visit Provider Internal Medicine
DX: D50.9 Iron deficiency anemia, unspecified (principal); E11.9 Type 2 diabetes mellitus without complications; I10 Essential (primary) hypertension; E78.5 Hyperlipidemia, unspecified; E03.9 Hypothyroidism, unspecified

== ENCOUNTER → 2025-01-02 13:44 | Outpatient (BNVA) | payer MEDICARE, MEDICAID, SELFPAY | PROVIDERS: PCP Internal Medicine; Visit Provider Internal Medicine | DX: I10 Essential (primary) hypertension (principal); E78.5 Hyperlipidemia, unspecified; E11.9 Type 2 diabetes mellitus without complications; D50.9 Iron deficiency anemia, unspecified; E03.9 Hypothyroidism, unspecified | CPT/HCPCS: 99212 ==

== ENCOUNTER 2025-04-18 12:52 | Outpatient (AMB) | payer MEDICARE, MEDICAID, SELFPAY ==
--- OUTSIDE RECORDS SUMMARY | 2024-12-07 05:45 | XMS_ITS ---
Author Organization [facility] Address [address] [place] [address] [place] [address] Care Team Providers Care Kiln Door Repairer Name Role Phone Vero DE LA CRUZ, Ericka Primary Care Provider Heidia Benita Art [phone] REASON FOR VISIT cancelled Encounters Encounter Location Date Provider Diagnosis [address] [address] 12/07/2024 Benita Martinez Plan Of Treatment No Information Progress Notes * Jo Ann LOZADA KDOB: [birth year] (79 yo F)Acc No.[id number]:12/07/2024 Progress Note Patient: Jo Ann GALLEGO Provider: Brittany Martinez DPM :1945 A ge:79 Y S ex:Female Date:12/07/2024 Address[address] Pcp:Ericka Pham MD Subjective: * Chief Complaints: * 1 . Cancelled. * Medical History: Objective: * Vitals: Assessment: Plan: * Treatment: * Images: * The named appointment provid er may or may not be the originator of this progress note, and it is not deemed complete until electronically signed by the appointment provider. Sign off status: Pending * Provider: Brittany Martinez DPM Date: 0 12/07/2024 Generated for Printi ng/Faxing/eTransmitting on: 0 04/18/2025 01:39 PM EDT
[2025-04-18 12:55] VITALS: BP 122/70; PULSE 85; RESP 18; TEMP 36.6; O2SAT 97; BMI 28.6
--- NOTE | 2025-04-18 12:55 | MHC.PC.OV ---
Vital Signs 04/18/25 12:55 Height 5 ft 6 in Weight 177 lb BMI 28.6 BP 122/70 Blood Pressure Location Lt brachial Position Sitting Respiration 18 Pulse 85 Pulse Source Pulse Oximeter Temp 97.8 F Temp Source Oral Pulse Oximetry (%) 97 Oxygen Delivery Method Room Air Intake Visit Reasons: 3 months f/up Intake Note: Pt is here today for 3 months follow up visit. Allergies dapagliflozin Adverse Reaction (Intermediate, Verified 04/18/25 12:58) candidiasis empagliflozin (From Jardiance) Adverse Reaction (Intermediate, Verified 04/18/25 12:58) candidiasis glipizide Adverse Reaction (Intermediate, Verified 04/18/25 12:58) leg edema Medication List - Last Reconciled 04/18/25 by Ericka Pham MD albuterol sulfate 90 mcg/actuation 2 puffs inhalation Q6H PRN amlodipine 2.5 mg PO DAILY blood sugar diagnostic (FreeStyle Lite Strips) check glucose once a day cholecalciferol (vitamin D3) 50 mcg PO DAILY Crestor (rosuvastatin) 10 mg PO DAILY NS estradiol 0.01%(0.1mg/gram) apply pea size to urethra daily fluticasone propionate 50 mcg/actuation 1 spray intranasal DAILY glimepiride 1 mg PO DAILY ketoconazole 2% 1 appl topical DAILY lancets (FreeStyle Lancets) check glucose once a day Levoxyl (levothyroxine) 88 mcg PO DAILY NS meclizine 25 mg PO BID PRN metformin ER 1,500 mg (3 x 500 mg) PO DAILY olmesartan 40 mg PO DAILY omeprazole 40 mg PO DAILY Tobacco use date assessed: 04/18/25 Dental Screening Dental Screen Date: 10/27/24 HPI 3 months f/up HPI Details Patient presents for the follow-up on hypertension hyperlipidemia type 2 diabetes and hypothyroidism [facility] Medical History Shoulder pain, right Nolasco's palsy DILL (dyspnea on exertion) Multinodular goiter Sore throat Hyperlipidemia Osteoporosis Skin cancer, basal cell Cervical radiculopathy Hypothyroidism FREDY (obstructive sleep apnea) Chronic lower back pain HTN (hypertension) DM type 2 (diabetes mellitus, type 2) Surgical History Hx of cataract surgery Family History Father No problems noted. Mother Cataract Social History Household Members: Spouse Housing: House Alcohol intake: never Patient Tobacco Use Status: Never used Tobacco e-Cigarette/Vaping Use: Never Used service: No Current occupational status: retired Cognitive needs: No Hearing needs: No Vision needs: No Questionnaire Thrive Questionnaire Date Thrive assessed: 10/27/24 JUAN LUIS-7 AMB Questionnaire JUAN LUIS-7 Date JUAN LUIS - 7 assessed: 10/27/24 Source: Developed by Drs. Henry Whiteside, Dora Roblero, Reggie Peterson and colleagues, with an educational keny from [employer]. Review of Systems Const All systems reviewed & are unremarkable except as noted in HPI and below ENT Reports no additional complaints Card Reports no additional complaints Resp Reports no additional complaints GI Reports no additional complaints Reports no additional complaints Physical exam (Primary Care) Vital Signs: Last Vital Signs Temp 97.8 F 04/18/25 12:55 Pulse 85 04/18/25 12:55 Resp 18 04/18/25 12:55 BP 122/70 04/18/25 12:55 Pulse Ox 97 04/18/25 12:55 Oxygen Delivery Method Room Air 04/18/25 12:55 BMI result Body Mass Index 28.6 Tobacco/Smoking Status: Tobacco use Status Tobacco use date assessed 04/18/25 04/18/25 13:01 Patient Tobacco Use Status Never used Tobacco 04/18/25 12:55 e-Cigarette/Vaping Use Never Used 04/18/25 12:55 Thrive Assessment: Date of Thrive Assessment Date Thrive assessed 10/27/24 04/18/25 12:55 Const General: no acute distress HENMT Head: Yes normal to inspection Eyes General: appearance normal, both eyes and all related structures Neck Neck: Yes supple Resp Effort & Inspection: normal respiratory effort Auscultation: clear to auscultation bilaterally Cardio Rhythm: regular rhythm Heart sounds: S1 normal heart sound present and S2 normal heart sound present GI Inspection: Yes normal to inspection Palpation (GI): Soft to palpation Percussion: Yes normal to percussion Auscultation: normal bowel sounds Coding Level of Care Code Est Pt Level 4 (25726) Complex EM visit Add On G2211 Diagnoses HTN (hypertension) I10 DM type 2 (diabetes mellitus, type 2) E11.9 Hypothyroidism E03.9 Iron deficiency anemia D50.9 DILL (dyspnea on exertion) R06.00 Assessment & Plan Assessment & Plan (1) HTN (hypertension): Code(s): I10 - Essential (primary) hypertension Category: Medical Plan: Continue current medications (2) DM type 2 (diabetes mellitus, type 2): Comment: Cannot tolerate 2000 mg of metformin, stomach upset Code(s): E11.9 - Type 2 diabetes mellitus without complications Category: Medical Plan: A1c is improving down to 8.0. ADA diet increase physical activity continue the same medications follow-up in 3 months with a fasting labs before (3) Hypothyroidism: Code(s): E03.9 - Hypothyroidism, unspecified Category: Medical Plan: Continue levothyroxine (4) Iron deficiency anemia: Comment: Patient refused to see GI for workup iron deficiency anemia Code(s): D50.9 - Iron deficiency anemia, unspecified Category: Medical Plan: Monitor CBC and continue iron replacement every other day (5) DILL (dyspnea on exertion): Code(s): R06.00 - Dyspnea, unspecified Category: Medical Plan: For chronic worsening dyspnea on exertion obtain echocardiogram to evaluate for ejection fraction and segmental wall motion abnormalities. Patient refused stress test Orders: Orders Complete Blood Count Auto Diff 3 Months D50.9 - Iron deficiency anemia, unspecified, E03.9 - Hypothyroidism, unspecified, E11.9 - Type 2 diabetes mellitus without complications, I10 - Essential (primary) hypertension TSH reflex Free T4 3 Months D50.9 - Iron deficiency anemia, unspecified, E03.9 - Hypothyroidism, unspecified, E11.9 - Type 2 diabetes mellitus without complications, I10 - Essential (primary) hypertension CA echo transthoracic complete Today I50.9 - Heart failure, unspecified, R06.00 - Dyspnea, unspecified Comprehensive [place]. Panel Fast 3 Months D50.9 - Iron deficiency anemia, unspecified, E03.9 - Hypothyroidism, unspecified, E11.9 - Type 2 diabetes mellitus without complications, I10 - Essential (primary) hypertension Hemoglobin A1c 3 Months D50.9 - Iron deficiency anemia, unspecified, E03.9 - Hypothyroidism, unspecified, E11.9 - Type 2 diabetes mellitus without complications, I10 - Essential (primary) hypertension Lipid Panel 3 Months D50.9 - Iron deficiency anemia, unspecified, E03.9 - Hypothyroidism, unspecified, E11.9 - Type 2 diabetes mellitus without complications, I10 - Essential (primary) hypertension Microalbumin, Random (w Creat) 3 Months D50.9 - Iron deficiency anemia, unspecified, E03.9 - Hypothyroidism, unspecified, E11.9 - Type 2 diabetes mellitus without complications, I10 - Essential (primary) hypertension
--- OUTSIDE RECORDS SUMMARY | 2025-04-18 13:39 | XMS_ITS | Clinical Summary ---
Author Organization [facility] Address [address] [place] [address] Care Team Providers Care Communications Writer Name Role Phone Unavailable Primary Care Provider Unavailabl e Social History Tobacco Use Types Packs/Day Years Used Date Smoking Tobacco: Never Assessed Comments Unknown Sex and Gender Information Value Date Recorded Sex Assigned at Not on file Legal Sex Female 5:01 PM EDT Gender Identity Not on file Sexual Orientation [...]
== END 2025-04-18 14:36 | disposition home or self-care (01) ==
LOC: HO.HMCC 12:53
PROVIDERS: PCP Internal Medicine; Visit Provider Internal Medicine
DX: I10 Essential (primary) hypertension (principal); E11.9 Type 2 diabetes mellitus without complications; E03.9 Hypothyroidism, unspecified; D50.9 Iron deficiency anemia, unspecified; R06.00 Dyspnea, unspecified

== ENCOUNTER → 2025-04-18 12:52 | Outpatient (BNVA) | payer MEDICARE, MEDICAID, SELFPAY | PROVIDERS: PCP Internal Medicine; Visit Provider Internal Medicine | DX: I10 Essential (primary) hypertension (principal); E11.9 Type 2 diabetes mellitus without complications; E03.9 Hypothyroidism, unspecified; R06.00 Dyspnea, unspecified; D50.9 Iron deficiency anemia, unspecified | CPT/HCPCS: 99212 ==

== ENCOUNTER 2025-07-17 11:34 | Outpatient (AMB) | payer MEDICARE, MEDICAID, SELFPAY ==
--- OUTSIDE RECORDS SUMMARY | 2024-12-07 05:45 | XMS_ITS ---
Author Organization [facility] Address [address] [place] [address] [place] [address] Care Team Providers Care Gang Saw Operator Name Role Phone Vero DE LA CRUZ, Ericka Primary Care Provider Heidia Benita Art [phone] REASON FOR VISIT cancelled Encounters Encounter Location Date Provider Diagnosis [address] [address] 12/07/2024 Benita Martinez Plan Of Treatment No Information Progress Notes * Jo Ann LOZADA KDOB: [birth year] (80 yo F)Acc No.[id number]:12/07/2024 Progress Note Patient: Jo Ann GALLEGO Provider: Brittany Martinez DPM :1945 A ge:79 Y S ex:Female Date:12/07/2024 Address[address] Pcp:Ericka Pham MD Subjective: * Chief Complaints: [...] 12/07/2024 Generated for Printi ng/Faxing/eTransmitting on: 1 02:55 PM EDT
--- NOTE | 2025-07-17 11:36 | A.OFFPC_ITS ---
Vital Signs 07/17/25 11:39 Height 5 ft 6 in Weight 176 lb BMI 28.4 BP 122/66 Blood Pressure Location Lt brachial Position Sitting Respiration 17 Pulse 81 Pulse Source Pulse Oximeter Temp 97.5 F Temp Source Oral Pulse Oximetry (%) 98 Oxygen Delivery Method Room Air Intake Visit Reasons: 3m follow up Intake Note: Pt is here today for 3 months follow up visit. Allergies dapagliflozin Adverse Reaction (Intermediate, Verified 07/17/25 11:40) candidiasis empagliflozin (From Jardiance) Adverse Reaction (Intermediate, Verified 07/17/25 11:40) candidiasis glipizide Adverse Reaction (Intermediate, Verified 07/17/25 11:40) leg edema Medication List - Last Reconciled 07/17/25 by Ericka Pham MD albuterol sulfate 90 mcg/actuation 2 puffs inhalation Q6H PRN amlodipine 2.5 mg PO DAILY blood sugar diagnostic (FreeStyle Lite Strips) check glucose once a day cholecalciferol (vitamin D3) 50 mcg PO DAILY Crestor (rosuvastatin) 10 mg PO DAILY NS estradiol 0.01%(0.1mg/gram) apply pea size to urethra daily fluticasone propionate 50 mcg/actuation 1 spray intranasal DAILY glimepiride 1 mg PO DAILY ketoconazole 2% 1 appl topical DAILY lancets (FreeStyle Lancets) check glucose once a day Levoxyl (levothyroxine) 88 mcg PO DAILY NS meclizine 25 mg PO BID PRN metformin ER 1,500 mg (3 x 500 mg) PO DAILY olmesartan 40 mg PO DAILY omeprazole 40 mg PO DAILY Tobacco use date assessed: 07/17/25 Dental Screening Dental Screen Date: 10/27/24 HPI 3m follow up HPI Details Patient presents for the follow-up of type 2 diabetes hypertension hyperlipidemia and hypothyroidism. Patient complains of chronic left shoulder pain worse when trying reach overhead. She denies any injury. Patient also reports bilateral knee pain left more than right. The pain is worse when patient walks for long distance. She denies any joint swelling. She reports some discomfort at night. [facility] Medical History (Updated 07/17/25 @ 12:20 by Ericka Pham MD) Left shoulder pain Shoulder pain, right Nolasco's palsy DILL (dyspnea on exertion) Multinodular goiter Sore throat Hyperlipidemia Osteoporosis Skin cancer, basal cell Cervical radiculopathy Hypothyroidism FREDY (obstructive sleep apnea) Chronic lower back pain HTN (hypertension) DM type 2 (diabetes mellitus, type 2) Surgical History Hx of cataract surgery Family History Father No problems noted. Mother Cataract Social History Household Members: Spouse Housing: House Alcohol intake: never Patient Tobacco Use Status: Never used Tobacco e-Cigarette/Vaping Use: Never Used service: No Current occupational status: retired Cognitive needs: No Hearing needs: No Vision needs: No Questionnaire Thrive Questionnaire Date Thrive assessed: 10/27/24 JUAN LUIS-7 AMB Questionnaire JUAN LUIS-7 Date JUAN LUIS - 7 assessed: 10/27/24 Source: Developed by Drs. Henry Whiteside, Dora Roblero, Reggie Peterson and colleagues, with an educational keny from [employer]. Review of Systems Const All systems reviewed & are unremarkable except as noted in HPI and below Eyes Reports no additional complaints ENT Reports no additional complaints Card Reports no additional complaints Resp Reports no additional complaints GI Reports no additional complaints Reports no additional complaints Physical exam (Primary Care) Vital Signs: Last Vital Signs Temp 97.5 F 07/17/25 11:39 Pulse 81 07/17/25 11:39 Resp 17 07/17/25 11:39 BP 122/66 07/17/25 11:39 Pulse Ox 98 07/17/25 11:39 Oxygen Delivery Method Room Air 07/17/25 11:39 BMI result Body Mass Index 28.4 Tobacco/Smoking Status: Tobacco use Status Tobacco use date assessed 07/17/25 07/17/25 11:41 Patient Tobacco Use Status Never used Tobacco 07/17/25 11:36 e-Cigarette/Vaping Use Never Used 07/17/25 11:36 Thrive Assessment: Date of Thrive Assessment Date Thrive assessed 10/27/24 07/17/25 11:36 Const General: no acute distress HENMT Head: Yes normal to inspection Resp Effort & Inspection: normal respiratory effort Auscultation: clear to auscultation bilaterally Cardio Rhythm: regular rhythm Heart sounds: S1 normal heart sound present and S2 normal heart sound present GI Inspection: Yes normal to inspection Extrem Other: There is a decreased range of motion in the left shoulder, anterior lateral aspect tenderness no joint deformity. bilateral knee decreased range of motion and crepitus, no joint tenderness erythema warmth Coding Level of Care Code Est Pt Level 4 (28343) Diagnoses Left shoulder pain M25.512 HTN (hypertension) I10 DM type 2 (diabetes mellitus, type 2) E11.9 Hypothyroidism E03.9 Hyperlipidemia E78.5 Assessment & Plan Assessment & Plan (1) Left shoulder pain: Code(s): M25.512 - Pain in left shoulder Category: Medical Plan: For chronic left shoulder pain patient will be referred to physical therapy (2) HTN (hypertension): Code(s): I10 - Essential (primary) hypertension Category: Medical Plan: Continue current medications (3) DM type 2 (diabetes mellitus, type 2): Comment: Cannot tolerate 2000 mg of metformin, stomach upset Code(s): E11.9 - Type 2 diabetes mellitus without complications Category: Medical Plan: A1c is 8.9. ADA diet increase physical activity discussed with the patient she was advised to increase glimepiride to 1 mg twice a day continue metformin and monitor her blood glucose regularly. Patient will return in 4 months with a fasting labs before (4) Hypothyroidism: Code(s): E03.9 - Hypothyroidism, unspecified Category: Medical Plan: Continue Levoxyl (5) Hyperlipidemia: Code(s): E78.5 - Hyperlipidemia, unspecified Category: Medical Plan: Continue statin Orders: Orders Complete Blood Count Auto Diff 4 Months E03.9 - Hypothyroidism, unspecified, E11.9 - Type 2 diabetes mellitus without complications, I10 - Essential (primary) hypertension Microalbumin, Random (w Creat) 4 Months E03.9 - Hypothyroidism, unspecified, E11.9 - Type 2 diabetes mellitus without complications, I10 - Essential (primary) hypertension TSH reflex Free T4 4 Months E03.9 - Hypothyroidism, unspecified Hemoglobin A1c 4 Months E03.9 - Hypothyroidism, unspecified, E11.9 - Type 2 diabetes mellitus without complications, I10 - Essential (primary) hypertension Comprehensive [place]. Panel Fast 4 Months E03.9 - Hypothyroidism, unspecified, E11.9 - Type 2 diabetes mellitus without complications, I10 - Essential (primary) hypertension Medications: Changed From glimepiride 1 mg PO DAILY 90 tabs 1RF To glimepiride 1 mg PO BID 180 tabs 3RF
[2025-07-17 11:39] VITALS: BP 122/66; PULSE 81; RESP 17; TEMP 36.4; O2SAT 98; BMI 28.4
--- OUTSIDE RECORDS SUMMARY | 2025-07-17 14:55 | XMS_ITS | Patient Health Record ---
Author Organization [facility] [place] Address [address] [place] [address] Care Team Providers Care Central Office Technician Name Role Phone Ericka Pham MD Primary Care Provider Heidia Benita Art Unavailable [phone] Allergies Allergen (clinical drug ingredient) Drug/Non Drug [...] Problem Type II diabetes mellitus without complication (643012210) Type 2 diabetes mellitus without complications (E11.9) Active confirmed Plan Of Treatment Pending Test Test Name Order Date [id number] NAIL, 6 OR MORE 07/17/2020 [id number] NAIL, -10/24/2020 [id number] NAIL, -12/01/2014 [id number] NAIL, -01/25/2021 [id number] NAIL, -04/26/2021 [id number] NAIL, -08/30/2021 [id number] NAIL, -5 02/26/2016 [id number]-Fajx Destruction, 1-14 10/24/2020 [id number]-Xikkzpmz Plate 01/25/2021 39128-Xuguhint Plate 04/26/2021 41866-Hrfckolo Plate 12/20/2021 55051-Dpyawjkq Plate 08/30/2021 44692- Debride <25 sq cm 02/20/2015 Insurance Providers Payer Name Payer Address Payer Phone Subscriber Number Group Number Insured Name Patient Relationship to Insured Coverage Start Date Coverage End Date Medicare National Govt Svcs Inc [address] [place] [address] [id number] Jo Ann Lozada Self - patient is the insured Medical (General) History Medical History History ICD Code Arthritis Diabetic High blood pressure Thyroid disorder Glaucoma Surgical History Surgery Date(Month/Year) thyroid 30 yrs ago gall bladder 18 yrs ago glaucoma L eye 6 R eye right cataract sx 04/2020
--- OUTSIDE RECORDS SUMMARY | 2025-07-17 14:55 | XMS_ITS | Clinical Summary ---
Author Organization [facility] Address [address] [place] [address] Care Team Providers Care Water Mechanic Name Role Phone Unavailable Primary Care Provider Unavailabl e Social History Tobacco Use Types Packs/Day Years Used Date Smoking Tobacco: Never Assessed Comments Unknown Sex and Gender Information Value Date Recorded Sex Assigned at Not on file Legal Sex Female 5:01 PM EDT Gender Identity Not on file Sexual Orientation Not on file Plan of Treatment Health Maintenance Due Date Last Done Comments Advance Care Planning 1945 Hepatitis C Virus Screening 1945 DTaP/Tdap/Td Vaccines (1 - Tdap) 1966 Pneumococcal Vaccines 50+ (1 of 1 - PCV) 1997 Zoster (Shingles) Vaccine (1 of 2) 1997 RSV Vaccine 50 years and old er and Patients (1 - 1-dose 75+ series) 2022 COVID-19 Vaccine ( - 2023-2 5 season) 2025 Hepatitis B Vaccines Aged Out No long er eligible based on patient's age to complete this topic
== END 2025-07-17 12:13 | disposition home or self-care (01) ==
LOC: HO.HMCC 11:34
PROVIDERS: PCP Internal Medicine; Visit Provider Internal Medicine
DX: M25.512 Pain in left shoulder (principal); I10 Essential (primary) hypertension; E11.9 Type 2 diabetes mellitus without complications; E03.9 Hypothyroidism, unspecified; E78.5 Hyperlipidemia, unspecified

== ENCOUNTER → 2025-07-17 11:34 | Outpatient (BNVA) | payer MEDICARE, MEDICAID, SELFPAY | PROVIDERS: PCP Internal Medicine; Visit Provider Internal Medicine | DX: M25.512 Pain in left shoulder (principal); I10 Essential (primary) hypertension; E11.9 Type 2 diabetes mellitus without complications; E03.9 Hypothyroidism, unspecified; E78.5 Hyperlipidemia, unspecified | CPT/HCPCS: 99212 ==

== ENCOUNTER 2025-08-30 13:43 | Outpatient (REF) | payer MEDICARE, MEDICAID, SELFPAY ==
--- OUTSIDE RECORDS SUMMARY | 2024-12-07 04:45 | XMS_ITS ---
[facility] Address [address] [place] [address] Care Team Providers Care Squad Boss Name Role Phone Vero DE LA CRUZ, Ericka Primary Care Provider Unavaila Benita Art [phone] REASON FOR VISIT cancelled Encounters Encounter Location Date Provider Diagnosis [address] [address] 12/07/2024 Benita Martinez Plan Of Treatment No Information Progress Notes * Jo Ann LOZADA KDOB: [birth year] (80 yo F)Acc No.[id number]:12/07/2024 Progress Note Patient: Jo Ann GALLEGO Provider: Brittany Martinez DPM :1945 A ge:79 Y S ex:Female Date:12/07/2024 Address[address] Pcp:Ericka Pham MD Subjective: * Chief Complaints: * 1 . Cancelled. * Medical History: Objective: * Vitals: Assessment: Plan: * Treatment: * Images: * The named appointment provid er may or may not be the originator of this progress note, and it is not deemed complete until electronically signed by the appointment provider. Sign off status: Pending * Provider: Brittayn Martinez DPM Date: 0 12/07/2024 Generated for Printi ng/Faxing/eTransmitting on: 1 10/31/2024 10:50 PM EST
--- NOTE | ~2025-08-30 | XR_ITS ---
EXAMINATION: XR KNEE, LEFT CLINICAL INFORMATION: M25.562 - Pain in left knee COMPARISON: None available. TECHNIQUE: 2 views. of the left knee. FINDINGS: No acute fracture, dislocation or suspicious bony lesion is identified No effusion. Mild medial compartment joint space narrowing No abnormal soft tissue calcification. XR/XR knee LT 2V IMPRESSION: Mild medial compartment arthritis Electronically signed by: Stan Paula MD 08/30/2025 04:33 PM EST
--- OUTSIDE RECORDS SUMMARY | 2025-08-30 22:51 | XMS_ITS | Patient Health Record ---
Author Organization [facility] Jennifer conor [place] Address [address] [place] [address] Care Team Providers Care Decorating Consultant Name Role Phone Ericka Pham MD Primary Care Provider Heidia Benita Art Unavailable [phone] Allergies Allergen (clinical drug ingredient) Drug/Non Drug [...] Problem Type II diabetes mellitus without complication ([id number]) Type 2 diabetes mellitus without complications (E11.9) Active confirmed Plan Of Treatment Pending Test Test Name Order Date [id number] NAIL, 6 OR MORE 07/17/2020 [id number] NAIL, -10/24/2020 [id number] NAIL, -12/01/2014 [id number] NAIL, -01/25/2021 [id number] NAIL, -04/26/2021 [id number] NAIL, -08/30/2021 [id number] NAIL, -5 02/26/2016 [id number] Destruction, 1-14 10/24/2020 [id number] Plate 01/25/2021 [id number] Plate 04/26/2021 [id number] Plate 12/20/2021 [id number] Plate 08/30/2021 [id number]- Debride <25 sq cm 02/20/2015 Insurance Providers Payer Name Payer Address Payer Phone Subscriber Number Group Number Insured Name Patient Relationship to Insured Coverage Start Date Coverage End Date Medicare [employer] [address] [place] [address] [id number] Jo Ann Lozada Self - patient is the insured Medical (General) History Medical History History ICD Code Arthritis Diabetic High blood pressure Thyroid disorder Glaucoma Surgical History Surgery Date(Month/Year) thyroid 30 yrs ago gall bladder 18 yrs ago glaucoma L eye 6 R eye right cataract sx 04/2020
== END 2025-08-30 13:44 | disposition home or self-care (01) ==
LOC: HO.HMGCX 13:43
PROVIDERS: PCP Internal Medicine; Visit Provider Internal Medicine
DX: Z00.00 Encounter for general adult medical examination without abnormal findings (principal); M25.562 Pain in left knee; I10 Essential (primary) hypertension; E11.9 Type 2 diabetes mellitus without complications; E78.5 Hyperlipidemia, unspecified; E03.9 Hypothyroidism, unspecified
CPT/HCPCS: 73560; 96127; 99212

== ENCOUNTER 2025-08-30 13:43 | Outpatient (AMB) | payer MEDICARE, MEDICAID, SELFPAY ==
--- NOTE | 2025-08-30 13:44 | MHC.PC.OV ---
Vital Signs 08/30/25 13:45 Height 5 ft 6 in Intake Visit Reasons: SWV G0439 Allergies dapagliflozin Adverse Reaction (Intermediate, Verified 07/17/25 11:40) candidiasis empagliflozin (From Jardiance) Adverse Reaction (Intermediate, Verified 07/17/25 11:40) candidiasis glipizide Adverse Reaction (Intermediate, Verified 07/17/25 11:40) leg edema Tobacco use date assessed: 07/17/25 Dental Screening Dental Screen Date: 10/27/24 [facility] Medical History (Updated 07/17/25 @ 12:20 by Ericka Pham MD) Left shoulder pain Shoulder pain, right Nolasco's palsy DILL (dyspnea on exertion) Multinodular goiter Sore throat Hyperlipidemia Osteoporosis Skin cancer, basal cell Cervical radiculopathy Hypothyroidism FREDY (obstructive sleep apnea) Chronic lower back pain HTN (hypertension) DM type 2 (diabetes mellitus, type 2) Surgical History Hx of cataract surgery Family History Father No problems noted. Mother Cataract Social History Household Members: Spouse Housing: House Alcohol intake: never Patient Tobacco Use Status: Never used Tobacco e-Cigarette/Vaping Use: Never Used service: No Current occupational status: retired Cognitive needs: No Hearing needs: No Vision needs: No Questionnaire Thrive Questionnaire Date Thrive assessed: 10/27/24 JUAN LUIS-7 AMB Questionnaire JUAN LUIS-7 Date JUAN LUIS - 7 assessed: 10/27/24 Source: Developed by Drs. Henry Whiteside, Dora Roblero, Reggie Peterson and colleagues, with an educational keny from [employer]. Physical exam (Primary Care) Tobacco/Smoking Status: Tobacco use Status Tobacco use date assessed 07/17/25 07/17/25 11:41 Patient Tobacco Use Status Never used Tobacco 07/17/25 11:36 e-Cigarette/Vaping Use Never Used 07/17/25 11:36 Thrive Assessment: Date of Thrive Assessment Date Thrive assessed 10/27/24 07/17/25 11:36 Coding
[2025-08-30 13:45] VITALS: BP 128/78; PULSE 89; RESP 18; O2SAT 97; BMI 28.6
--- NOTE | 2025-08-30 13:48 | AM.OFFVISMDC ---
Intake Vital Signs 08/30/25 13:45 08/30/25 13:51 Height 5 ft 6 in Weight 177 lb BMI 28.6 28.6 BP 128/78 Blood Pressure Location Lt brachial Position Sitting Respiration 18 Pulse 89 Pulse Source Pulse Oximeter Pulse Oximetry (%) 97 Oxygen Delivery Method Room Air Intake Visit Reasons: SWV G0439 Allergies dapagliflozin Adverse Reaction (Intermediate, Verified 08/30/25 13:49) candidiasis empagliflozin (From Jardiance) Adverse Reaction (Intermediate, Verified 08/30/25 13:49) candidiasis glipizide Adverse Reaction (Intermediate, Verified 08/30/25 13:49) leg edema Medication List - Last Reconciled 08/30/25 by Ericka Pham MD albuterol sulfate 90 mcg/actuation 2 puffs inhalation Q6H PRN amlodipine 2.5 mg PO DAILY blood sugar diagnostic (FreeStyle Lite Strips) check glucose once a day cholecalciferol (vitamin D3) 50 mcg PO DAILY Crestor (rosuvastatin) 10 mg PO DAILY NS estradiol 0.01%(0.1mg/gram) apply pea size to urethra daily fluticasone propionate 50 mcg/actuation 1 spray intranasal DAILY glimepiride 1 mg PO BID ketoconazole 2% 1 appl topical DAILY lancets (FreeStyle Lancets) check glucose once a day Levoxyl (levothyroxine) 88 mcg PO DAILY NS meclizine 25 mg PO BID PRN metformin ER 1,500 mg (3 x 500 mg) PO DAILY olmesartan 40 mg PO DAILY omeprazole 40 mg PO DAILY HPI SWV G0439 HPI Details Patient presents for annual visit. She complains of chronic left knee pain worse at night after laying down in bed. She denies any joint swelling, pain during the day when walking or injury. Initiated the conversation about Advanced Directives. Advanced Directives help? patients prepare for current and future decisions about their medical treatment? and place of care. Discussed with patient that it is a process where a patients? current condition and prognosis are reviewed, their wishes for information? regarding their illness are elicited, and likely medical dilemmas are presented? and options discussed. The form can be amended as needed, reviewed yearly and? make changes as needed IPPE/AWV ? year old presents? for her ? Annual? Wellness Visit, initial visit.? Medical / Social History Reviewed? Past Medical History ?Yes? . ? [place]? of Care / Care Team list updated ?Yes . ? Surgical/Hospitalization? History ?Yes . ? Current Medications? (including OTC and supplements) ?Yes . ? Family History ?Yes? . ? Tobacco? Control form ?Yes . ? AUDIT-C (Alcohol use) form? ?Yes . ? Illicit drug use in Social? History ?Yes . ? Current diagnosis of? depression? ?No ? Appropriate PHQ2/PHQ9? completed ?Yes . ? Data entered by ?Medical? Supervisor Policy Change Clerks and reviewed by provider ? Fall Risk ? Fall? History? Have you had any falls with? injury in the past year? ?No . ? Have you had two or more? falls in the past year? ?No . ? Fall Risk Assessment: ?No? falls in the past year . ? HRA filled out by? the patient, reviewed by Provider and scanned. ? IPPE/AWV ? Balance? [place]? ?Yes . ? Tandem? walk ?Yes . ? Walk and? Turn ?Yes . ? Rise from? sit to stand ?Yes . ?Vision? Corrective? lens ?Yes ? Vision? screen ? Up-to-date, has an appointment [] for vision? screening and glaucoma screening ?Hearing? Whisper? test ?pass .? Initiated the conversation about Advanced Directives. Advanced Directives help? patients prepare for current and future decisions about their medical treatment? and place of care. Discussed with patient that it is a process where a patients? current condition and prognosis are reviewed, their wishes for information? regarding their illness are elicited, and likely medical dilemmas are presented? and options discussed. The form can be amended as needed, reviewed yearly and? make changes as needed Written? Plan?Completed. See Patient? Documents. [facility] Medical History (Updated 08/30/25 @ 15:06 by Ericka Pham MD) Hearing loss Left shoulder pain Shoulder pain, right Nolasco's palsy DILL (dyspnea on exertion) Multinodular goiter Sore throat Hyperlipidemia Osteoporosis Skin cancer, basal cell Cervical radiculopathy Hypothyroidism FREDY (obstructive sleep apnea) Chronic lower back pain HTN (hypertension) DM type 2 (diabetes mellitus, type 2) Surgical History Hx of cataract surgery Family History Father No problems noted. Mother Cataract Social History Household Members: Spouse Housing: House Alcohol intake: never Patient Tobacco Use Status: Never used Tobacco e-Cigarette/Vaping Use: Never Used service: No Current occupational status: retired Cognitive needs: No Hearing needs: No Vision needs: No Questionnaire Medicare Wellness Checkup [age] What gender do you identify with?: female During the past 4 weeks, how much have you been bothered by emotional problems such as feeling anxious, depressed, irritable, sad or downhearted, and blue?: slightly During the past 4 weeks, has your physical & emotional health limited your social activities with family, friends, neighbors, or groups?: not at all During the past 4 weeks, how much bodily pain have you generally had?: mild pain During the past 4 weeks, was someone available to help you if you needed & wanted help?: yes, as much as I wanted During the past 4 weeks, what was the hardest physical activity you could do for at least 2 minutes?: moderate Can you get to places out of walking distance without help? (For eg., can you travel alone on buses, taxis or drive your car?): Yes Can you go shopping for groceries or clothes without someone's help?: Yes Can you prepare your own meals?: Yes Can you do your housework without help?: Yes Because of any health problems, do you need the help of another person with your personal care needs such as eating, bathing, dressing or getting around the house?: No Can you handle your own money without help?: Yes During the past 4 weeks, how would you rate your health in general?: good During the past 4 weeks how have things been going for you?: good & bad parts about equal Are you having difficulties driving your car?: not applicable, I don't use a car Do you always fasten your seat belt when you are in a car?: yes, usually During past 4 weeks, have you been bothered by the following: never: Falling or dizzy when standing up, Sexual problems?, Trouble eating well?, Teeth or denture problems? and Problems using the telephone? and seldom: Tiredness or fatigue? Have you fallen 2 or more times in the past year?: No Are you afraid of falling?: No Are you a smoker?: no During the past 4 weeks, how many drinks of wine, beer, or other alcoholic beverages did you have?: no alcohol at all Do you exercise for about 20 minutes 3 or more times a week?: no, I usually do not exercise this much Have you been given information to help with the following?: no: Hazards in your house that might hurt you? and no: Keeping track of your medications? How often do you have trouble taking medicines the way you have been told to take them?: I always take medicine as prescribed How confident are you that you can control & manage most of your health problems?: very confident What is your race?: White Mini Mental State Exam (MMSE) Orientation What is the (year) (season) (date) (day) (month)?: year, season, date, day and month Where are we (state) (county) (town or city) (hospital) (floor)?: state, county, town or city, hospital/clinic and floor Registration Name of 3 unrelated objects clearly and slowly, then ask patient to repeat all 3 of them. (1st repeat determines score. Make sure they can repeat all three): object 1, object 2 and object 3 Attention & Calculation (CHOOSE ONE) Spell WORLD backwards (DLROW): 5 letters Recall Ask patient to repeat the 3 items from question #3.: object 1, object 2 and object 3 Language Show patient a wristwatch & ask what it is. Repeat for pencil.: watch and pencil Ask the patient to repeat the phrase 'No ifs, ands, or buts' after you.: correct Ask the patient to 'take a piece of paper with their right hand' 'fold paper in half' 'place paper on floor': take paper in right hand, fold paper in half and place paper on floor Print the sentence 'CLOSE YOUR EYES' on a piece. If patient actually closes eyes then score.: followed written direction Give patient a blank piece of paper & ask to write a sentence. Score if it contains a noun & verb.: sentence contains subject and verb Score Score: 29 PHQ-9 Over the last 2 weeks, how often have you been bothered by any of the following problems? 1. Little interest or pleasure in doing things: not at all 2. Feeling down, depressed, or hopeless: not at all 3. Trouble falling or staying asleep, or sleeping too much: not at all 4. Feeling tired or having little energy: not at all 5. Poor appetite or overeating: not at all 6. Feeling bad about yourself - or that you are a failure or have let yourself or your family down: not at all 7. Trouble concentrating on things, such as reading the newspaper or watching television: not at all 8. Moving or speaking so slowly that other people could have noticed. Or the opposite - being so fidgety or restless that you have been moving around a lot more than usual: not at all 9. Thoughts that you would be better off or of hurting yourself in some way: not at all Total score: 0 Depression Screening Interpretation: Negative Depression Screening Done: Yes Source: Developed by Drs. Henry Whiteside, Dora Roblero, Reggie Peterson and colleagues, with an educational keny from [employer]. Review of Systems Const All systems reviewed & are unremarkable except as noted in HPI and below Eyes Reports no additional complaints ENT Reports no additional complaints Card Reports no additional complaints Resp Reports no additional complaints GI Reports no additional complaints Reports no additional complaints Physical Exam Vital Signs: Last Vital Signs Pulse 89 08/30/25 13:45 Resp 18 08/30/25 13:45 BP 128/78 08/30/25 13:45 Pulse Ox 97 08/30/25 13:45 Oxygen Delivery Method Room Air 08/30/25 13:45 BMI result Body Mass Index 28.6 Const General: no acute distress HEENT Head: Yes normal to inspection Ears: TM's normal bilaterally Eyes General: appearance normal, both eyes and all related structures Neck Neck: Yes no lymphadenopathy and Yes supple Resp Effort & Inspection: normal respiratory effort Auscultation: clear to auscultation bilaterally Cardio Rhythm: regular rhythm Heart sounds: S1 normal heart sound present and S2 normal heart sound present GI Inspection: Yes normal to inspection Palpation (GI): Soft to palpation Percussion: Yes normal to percussion Auscultation: normal bowel sounds Extrem Other: Slightly decreased range of motion left knee no soft tissue swelling erythema warmth General: Yes no clubbing, cyanosis or edema Assessment & Plan Assessment & Plan (1) Knee pain, left: Code(s): M25.562 - Pain in left knee Plan: For chronic left knee pain obtain x-ray of left knee and meloxicam PRN is prescribed. Patient will follow-up with orthopedic surgeon (2) HTN (hypertension): Code(s): I10 - Essential (primary) hypertension Plan: Continue current medications (3) DM type 2 (diabetes mellitus, type 2): Comment: Cannot tolerate 2000 mg of metformin, stomach upset Code(s): E11.9 - Type 2 diabetes mellitus without complications Plan: A1c is 8.9. ADA diet increase exercise weight loss discussed with the patient. She has not been taking glimepiride because of leg cramps. Patient has not been monitoring her blood glucose regularly and is not compliant with ADA diet. She refused to take more medications. Patient will follow-up in 3 months with a fasting labs before (4) Hyperlipidemia: Comment: Taking Crestor twice a week because of myalgia and arthralgia Code(s): E78.5 - Hyperlipidemia, unspecified Plan: Continue statin (5) Hypothyroidism: Code(s): E03.9 - Hypothyroidism, unspecified Plan: Continue levothyroxine (6) Annual physical exam: Code(s): Z00.00 - Encounter for general adult medical examination without abnormal findings Plan: Well-balanced diet regular physical activity discussed with the patient. She will return in 3 months with a fasting labs before Orders: Orders XR knee LT 2V Today M25.562 - Pain in left knee Complete Blood Count Auto Diff 3 Months E11.9 - Type 2 diabetes mellitus without complications, I10 - Essential (primary) hypertension Lipid Panel 3 Months E11.9 - Type 2 diabetes mellitus without complications, I10 - Essential (primary) hypertension Microalbumin, Random (w Creat) 3 Months E11.9 - Type 2 diabetes mellitus without complications, I10 - Essential (primary) hypertension TSH reflex Free T4 3 Months E11.9 - Type 2 diabetes mellitus without complications, I10 - Essential (primary) hypertension Comprehensive [place]. Panel Fast 3 Months E11.9 - Type 2 diabetes mellitus without complications, I10 - Essential (primary) hypertension Referrals Audiology Referral H91.90 - Unspecified hearing loss, unspecified ear Medications: New meloxicam 7.5 mg PO DAILY 30 tabs 0RF Quality Reporting (2019) Depression/Bipolar (159/160/161/177) PHQ-9: Total score: 0 Coding Level of Care Code Medicare Subsequent (G0439) Diagnoses Knee pain, left M25.562 HTN (hypertension) I10 DM type 2 (diabetes mellitus, type 2) E11.9 Hyperlipidemia E78.5 Hypothyroidism E03.9 Annual physical exam Z00.00 CPT Codes Advance Care Planning - Advance Care Planning discussion: On file, no changes ([id number]) Advance Care Planning - Time spent: 1-15 minutes, on File ([id number]) Advance Care Planning Advance Care Planning discussion: On file, no changes Forms completed: Health Care Proxy Time spent: 1-15 minutes, on File
[2025-08-30 13:51] VITALS: BMI 28.6
--- OUTSIDE RECORDS SUMMARY | 2025-08-30 21:18 | XMS_ITS | Clinical Summary ---
Author Organization [facility] Address [address] [place] [address] Care Team Providers Care Insurance Claims Assistant Name Role Phone Unavailable Primary Care Provider [...]
== END 2025-08-30 15:06 | disposition home or self-care (01) ==
LOC: HO.HMCC 13:44
PROVIDERS: PCP Internal Medicine; Visit Provider Internal Medicine
DX: Z00.00 Encounter for general adult medical examination without abnormal findings (principal); E11.69 Type 2 diabetes mellitus with other specified complication; M25.562 Pain in left knee; I10 Essential (primary) hypertension; E78.5 Hyperlipidemia, unspecified; E03.9 Hypothyroidism, unspecified

== ENCOUNTER → 2025-08-30 14:34 | Outpatient (BNV) | payer MEDICARE, MEDICAID, SELFPAY | PROVIDERS: PCP Internal Medicine; Visit Provider Radiology Diagnostic Ultrasound | DX: M17.12 Unilateral primary osteoarthritis, left knee (principal) | CPT/HCPCS: 73560 ==